=== PATIENT | male | born 1955 | race Caucasian/White ===

== ENCOUNTER 2019-04-20 08:10 | Outpatient (RCR) | payer BC, SELFPAY ==
[2019-02-02 08:03] LABS: INR 3.9; Prothrombin Time 37.5 Seconds (11.1-14.7)
[2019-02-09 07:55] LABS: INR 2.2; Prothrombin Time 23.8 Seconds (11.1-14.7)
[2019-04-03 11:22] LABS: INR 1.9; Prothrombin Time 21.6 Seconds (11.1-14.7)
[2019-04-20 09:27] LABS: INR 1.8; Prothrombin Time 20.6 Seconds (11.1-14.7)
== END 2019-05-03 23:59 | disposition home or self-care (01) ==
LOC: ANHLAB 08:10
PROVIDERS: PCP Family Medicine; Visit Provider Specialist
DX: Z95.2 Presence of prosthetic heart valve (principal)
CPT/HCPCS: 36415; 85610

== ENCOUNTER 2019-07-12 10:43 | Outpatient (RCR) | payer BC, OTHER, SELFPAY ==
[2019-05-05 11:19] LABS: INR 2.8; Prothrombin Time 28.8 Seconds (11.1-14.7)
[2019-06-12 14:21] LABS: INR 2.5; Prothrombin Time 26.8 Seconds (11.1-14.7)
[2019-07-12 11:18] LABS: INR 2.3; Prothrombin Time 24.4 Seconds (11.1-14.7)
== END 2019-08-03 23:59 | disposition home or self-care (01) ==
LOC: ANHLAB 10:43
PROVIDERS: PCP Family Medicine; Visit Provider Specialist
DX: Z95.2 Presence of prosthetic heart valve (principal)
CPT/HCPCS: 36415; 85610

== ENCOUNTER 2019-10-16 10:45 | Outpatient (RCR) | payer OTHER, SELFPAY ==
[2019-08-23 10:36] LABS: INR 2.8; Prothrombin Time 29.2 Seconds (11.1-14.7)
== END 2019-11-21 23:59 | disposition home or self-care (01) ==
LOC: ANHLAB 10:45
PROVIDERS: PCP Family Medicine; Visit Provider Specialist
DX: Z95.2 Presence of prosthetic heart valve (principal)
CPT/HCPCS: 36415; 85610

== ENCOUNTER 2020-02-07 08:41 | Outpatient (RCR) | payer OTHER, SELFPAY ==
[2019-12-20 08:49] LABS: Prothrombin Time 22.5 Seconds (11.1-14.7)
[2020-02-07 09:25] LABS: INR 2.5; Prothrombin Time 27.6 Seconds (11.1-14.7)
== END 2020-03-19 23:59 | disposition home or self-care (01) ==
LOC: ANHLAB 08:41
PROVIDERS: PCP Family Medicine; Visit Provider Specialist
DX: Z95.2 Presence of prosthetic heart valve (principal)
CPT/HCPCS: 36415; 85610

== ENCOUNTER 2020-05-08 11:15 | Outpatient (CLI) | payer OTHER, SELFPAY | END 2020-05-08 11:16 | disposition home or self-care (01) | LOC: ANHCOVIDVC 11:15 | PROVIDERS: PCP Family Medicine | DX: Z23 Encounter for immunization (principal) | CPT/HCPCS: 0001A; 91300 ==

== ENCOUNTER 2020-05-29 11:15 | Outpatient (CLI) | payer OTHER, SELFPAY | END 2020-05-29 11:16 | disposition home or self-care (01) | LOC: ANHCOVIDVC 11:15 | PROVIDERS: PCP Family Medicine | DX: Z23 Encounter for immunization (principal) | CPT/HCPCS: 0002A; 91300 ==

== ENCOUNTER 2020-06-11 08:47 | Outpatient (RCR) | payer OTHER, SELFPAY ==
[2020-03-25 09:20] LABS: INR 2.3; Prothrombin Time 26.2 Seconds (11.1-14.7)
[2020-05-02 08:06] LABS: INR 2.6; Prothrombin Time 28.5 Seconds (11.1-14.7)
[2020-06-11 09:36] LABS: INR 2.3; Prothrombin Time 25.5 Seconds (11.1-14.7)
== END 2020-06-23 23:59 | disposition home or self-care (01) ==
LOC: ANHLAB 08:47
PROVIDERS: PCP Family Medicine; Visit Provider Specialist
DX: Z95.2 Presence of prosthetic heart valve (principal)
CPT/HCPCS: 36415; 85610

== ENCOUNTER 2020-10-10 07:55 | Outpatient (RCR) | payer OTHER, SELFPAY ==
[2020-07-18 09:50] LABS: INR 2.4; Prothrombin Time 26.7 Seconds (11.1-14.7)
[2020-09-06 07:41] LABS: INR 2.4; Prothrombin Time 25.6 Seconds (11.1-14.7)
[2020-10-10 09:28] LABS: INR 2.5; Prothrombin Time 26.4 Seconds (11.1-14.7)
== END 2020-10-16 23:59 | disposition home or self-care (01) ==
LOC: ANHLAB 07:55
PROVIDERS: PCP Family Medicine; Visit Provider Specialist
DX: Z51.81 Encounter for therapeutic drug level monitoring (principal); Z95.2 Presence of prosthetic heart valve; Z79.01 Long term (current) use of anticoagulants
CPT/HCPCS: 36415; 85610

== ENCOUNTER 2021-02-25 08:34 | Outpatient (RCR) | payer OTHER, SELFPAY ==
[2020-11-27 08:52] LABS: INR 2.6
[2021-01-31 09:03] LABS: INR 3.4; Prothrombin Time 33.6 Seconds (11.1-14.7)
[2021-02-25 09:04] LABS: INR 2.5; Prothrombin Time 26.2 Seconds (11.1-14.7)
== END 2021-02-25 23:59 | disposition home or self-care (01) ==
LOC: ANHLAB 08:34
PROVIDERS: PCP Family Medicine; Visit Provider Specialist
DX: Z95.2 Presence of prosthetic heart valve (principal); Z79.01 Long term (current) use of anticoagulants
CPT/HCPCS: 36415; 85610

== ENCOUNTER 2021-05-01 02:15 | Day surgery (SDC) | payer OTHER, SELFPAY ==
[2021-04-23 14:06] VITALS: BMI 29.0
--- NOTE | 2021-04-24 14:49 | PC.NURSE ---
PT CALLED AND INSTRUCTED TO TAKE WARFARIN 04/26/2021 AND THEN HOLD STARTING 04/27/2021 UNTIL AFTER HIS PROCEDURE. PT VERBALIZES UNDERSTANDING
--- NOTE | 2021-04-30 14:54 | WPDANESEPPF ---
Anes - Initial Pre Proc Eval Procedure: Operation Date: 05/01/21 07:30 Proposed Procedures p Colonoscopy - Rafy Jolley MD Date/Time: 04/30/21 14:54 Surgeon: Rafy Jolley MD Pre Op Diagnosis: diarrhea Patient Data Age: 66 Gender: M Height: 1.7 m Weight: 84 kg Allergies Allergy/AdvReac Type Severity Reaction Status Date / Time No Known Allergies Allergy Verified 05/01/21 06:19 Home Medications Medication Instructions Recorded Confirmed Type aspirin [Adult Low Dose Aspirin] 81 mg PO DAILY 04/23/21 04/23/21 History cetirizine [Zyrtec] 10 mg PO DAILY 04/23/21 04/23/21 History latanoprost 1 drp EACH EYE HS 04/23/21 04/23/21 History losartan 100 mg PO DAILY 04/23/21 04/23/21 History rosuvastatin 20 mg PO QPM 04/23/21 04/23/21 History sertraline 100 mg PO DAILY 04/23/21 04/23/21 History warfarin 3 mg PO QPM 04/23/21 04/23/21 History warfarin 4 mg PO QTUTH 04/23/21 04/23/21 History Patient hx anesthesia problems: none Family hx anesthesia problems: none Results Review: All pre-operative results and documents have been reviewed as part of the pre-operative evaluation. [facility] Past Medical History Medical History (Updated 04/30/21 @ 14:56 by Tanner Cee DO) Anxiety Glaucoma Hyperlipidemia Hypertension Surgical History Surgical History (Updated 04/30/21 @ 14:56 by Tanner Cee DO) H/O aortic valve replacement 2009 Social History Social History Smoking status: Never smoker Alcohol intake: never Substance use: never Substance use type: does not use Living arrangements: with family Spiritual care concerns: No Anes - Eval Final PreProcedure Day of Procedure 04/30/21 14:54 Patient weight: overweight Heart: regular rate and rhythm Lungs: clear to auscultation and normal air movement Airway: Mallampati scale class II Neurological: alert and oriented Last oral intake: >/= 8 hours ASA classification: III Emergent: no Anesthetic plan: proceed Anesthesia type and monitoring: general GIVS and standard monitoring Results Review: All pre-operative results and documents have been reviewed as part of the pre-operative evaluation. Informed Consent: The patient's anesthetic plan and its attendant risks and benefits were discussed with the patient/family/POA. Questions were solicited and answers provided to the satisfaction of the patient/family/POA.
[2021-05-01] MEDS: GENTAMICIN 80MG/SOD CHL 50 ML 80 MG/50 ML BAG 100 MG IVPB (06:40)
[2021-05-01] MEDS: LACTATED RINGERS 1,000 ML 150 ML IV CONT (06:44)
[2021-05-01 06:50] VITALS: BP 136/84; PULSE 74; RESP 20; TEMP 36.3; O2SAT 97; BMI 27.9
[2021-05-01] MEDS: AMPICILLIN 2 GM/NS 100 ML 2 GM/100 ML BAG IVPB (07:12)
[2021-05-01 07:24] LABS: INR 1.3; Prothrombin Time 15.2 Seconds (11.1-14.7)
--- NOTE | 2021-05-01 07:28 | WPDGICN ---
Assessment and Plan Assessment and plan (1) Diarrhea: Code(s): R19.7 - Diarrhea, unspecified Status: Acute Assessment and Plan: Patient has diarrhea which will be evaluated the time of screening colonoscopy. Adding fiber to his diet is encouraged. Plan to exclude inflammatory bowel disease given the fact his twin brother suffers with Crohn's disease. Further recommendations will be given after endoscopy. (2) Encounter for screening colonoscopy: Code(s): Z12.11 - Encounter for screening for malignant neoplasm of colon Status: Acute Assessment and Plan: Patient presents for screening colonoscopy has been 12 years since last exam. Further recommendations will be given after endoscopy. GI Consult Note Consult date/time: 05/01/21 07:28 HPI: Guillaume Hutchinson is a 66 year old male Presents for colonoscopy on referral from Dr. Pearson. Patient reports 3-4 month history of diarrhea stools. Patient has soft to liquid stools has been persistent for several months. Always during the day. Never at night. He has no bleeding. He does have associated low bilateral abdominal discomfort that is rather persistent. Patient denies any fevers. He has had no recent travel. No one else in the family is ill. Patient reports that his twin brother has Crohn's disease. Patient himself has a distant history of heart valve replacement. Patient's last screening colonoscopy 12 years ago was unremarkable. Review of Systems Review of Systems: All systems reviewed & are unremarkable except as noted in HPI and below PMFSH Past Medical History Medical History (Updated 05/01/21 @ 07:30 by Rafy Jolley MD) Anxiety Glaucoma Hyperlipidemia Hypertension Surgical History Surgical History (Updated 04/30/21 @ 14:56 by Tanner Cee DO) H/O aortic valve replacement 2009 Social History Social History Smoking status: Never smoker Alcohol intake: never Substance use: never Substance use type: does not use Living arrangements: with family Spiritual care concerns: No Meds Home Medications and Allergies Home Medications Medication Instructions Recorded Confirmed Type aspirin [Adult Low Dose Aspirin] 81 mg PO DAILY 04/23/21 04/23/21 History cetirizine [Zyrtec] 10 mg PO DAILY 04/23/21 04/23/21 History latanoprost 1 drp EACH EYE HS 04/23/21 04/23/21 History losartan 100 mg PO DAILY 04/23/21 04/23/21 History rosuvastatin 20 mg PO QPM 04/23/21 04/23/21 History sertraline 100 mg PO DAILY 04/23/21 04/23/21 History warfarin 3 mg PO QPM 04/23/21 04/23/21 History warfarin 4 mg PO QTUTH 04/23/21 04/23/21 History Allergies Allergy/AdvReac Type Severity Reaction Status Date / Time No Known Allergies Allergy Verified 05/01/21 06:19 Vital Signs Vital Signs - 24 hr 05/01/21 06:50 Temperature 97.4 F L Pulse Rate 74 Respiratory Rate 20 Blood Pressure 136/84 Pulse Oximetry 97 Exam Narrative: Physical exam reveals patient to be alert. Vital signs stable. HEENT exam is unremarkable. Patient is anicteric. Lungs are clear to auscultation and percussion. Heart is without murmur or extra sounds. Abdominal exam bowel sounds are present soft nontender with no hepatosplenomegaly. Digital external rectal exam is normal.
--- NOTE | 2021-05-01 07:39 | SUR.OPER ---
PT and INR reported to Dr. Jolley during the time of the Time out.
[2021-05-01] MEDS: SIMETHICONE ORAL SUSPENSION 20 MG/0.3 ML 30 ML BOTTLE 0.6 ML IRRIGATION (07:46)
[2021-05-01 08:00] VITALS: BP 102/71; PULSE 60; RESP 16; O2SAT 95
[2021-05-01 08:10] VITALS: BP 117/79; PULSE 64; RESP 18; O2SAT 98
[2021-05-01 08:20] VITALS: BP 131/81; PULSE 58; RESP 20; O2SAT 98
== END 2021-05-01 08:39 | disposition home or self-care (01) ==
PROVIDERS: PCP Family Medicine; Visit Provider Internal Medicine Gastroenterology
PROC: 0DJD8ZZ Inspection of Lower Intestinal Tract, Via Natural or Artificial Opening Endoscopic (ICD-10-PCS; CPT 45378; principal; 2021-05-01 07:30)
DX: Z12.11 Encounter for screening for malignant neoplasm of colon (principal); K52.9 Noninfective gastroenteritis and colitis, unspecified; K64.8 Other hemorrhoids; K57.30 Diverticulosis of large intestine without perforation or abscess without bleeding; Z79.82 Long term (current) use of aspirin; Z79.01 Long term (current) use of anticoagulants; Z95.2 Presence of prosthetic heart valve
CPT/HCPCS: 45380; 36415; 85610; 88305; J0290; J1580; J2704; J7120

== ENCOUNTER 2021-06-30 08:10 | Outpatient (RCR) | payer OTHER, SELFPAY ==
[2021-04-21 09:21] LABS: INR 3.3; Prothrombin Time 32.6 Seconds (11.1-14.7)
[2021-05-26 09:42] LABS: INR 3.4; Prothrombin Time 33.3 Seconds (11.1-14.7)
[2021-06-30 08:50] LABS: INR 2.6; Prothrombin Time 26.9 Seconds (11.1-14.7)
== END 2021-07-20 23:59 | disposition home or self-care (01) ==
LOC: ANHLAB 08:10
PROVIDERS: PCP Family Medicine; Visit Provider Specialist
DX: Z51.81 Encounter for therapeutic drug level monitoring (principal); Z95.2 Presence of prosthetic heart valve; Z79.01 Long term (current) use of anticoagulants
CPT/HCPCS: 36415; 85610

== ENCOUNTER 2021-09-17 08:24 | Outpatient (RCR) | payer OTHER, SELFPAY ==
[2021-08-12 09:47] LABS: INR 1.9; Prothrombin Time 21.5 Seconds (11.1-14.7)
[2021-09-17 09:04] LABS: INR 2.1; Prothrombin Time 22.7 Seconds (11.1-14.7)
== END 2021-11-10 23:59 | disposition home or self-care (01) ==
LOC: ANHLAB 08:24
PROVIDERS: PCP Family Medicine; Visit Provider Specialist
DX: Z95.2 Presence of prosthetic heart valve (principal); Z79.01 Long term (current) use of anticoagulants
CPT/HCPCS: 36415; 85610

== ENCOUNTER 2022-02-06 12:47 | Outpatient (CLI) | payer MEDICARE, SELFPAY ==
--- NOTE | ~2022-02-06 | CT_ITS ---
EXAMINATION: CT abdomen pelvis wo/w con DATE: 02/06/2022 13:36 INDICATION: Gross hematuria TECHNIQUE: Computed tomography (CT) of the abdomen and pelvis was performed without intravenous contr ast. CT of the abdomen and pelvis was then performed with a total of 130 mL Omnipaque 350 intravenous contrast using a double-bolus technique for simultaneous opacification of the renal parenchyma and r enal collecting system. The dose-length product (DLP) was 1117.62 mGy-cm. Automated exposure control and iterative reconstruction technique were employed. COMPARISON: 04/02/2015 FINDINGS: Minimal dependent atelectasis is present in the lung bases. The heart size is normal. There is a 12 mm cyst of the liver. The spleen, pancreas, gallbladder, and adrenal glands are normal. Ther e is a 5.2 cm cyst of the right kidney. There are peripelvic cysts of the left kidney. There is a 2 m m nonobstructing stone of the left kidney lower pole. No suspicious renal or urothelial lesion identi fied. No pathologically enlarged abdominal or pelvic lymph nodes are identified. There is no free int raperitoneal gas or evidence of bowel obstruction. The appendix is normal. Colonic diverticulosis is present without evidence of diverticulitis. There is mild lumbar spondylosis. IMPRESSION: 1. Nonobstructing left kidney stone. Reviewed, dictated and finalized at location A. [employer]
[2022-02-06 13:23] LABS: Estimated Glomerular Filt Rate > 60
== END 2022-02-06 12:48 | disposition home or self-care (01) ==
PROVIDERS: PCP Family Medicine; Visit Provider Family Medicine
DX: R31.0 Gross hematuria (principal); N20.0 Calculus of kidney
CPT/HCPCS: 74178; Q9967

== ENCOUNTER 2022-02-09 09:09 | Outpatient (RCR) | payer OTHER, SELFPAY ==
[2021-11-27 08:37] LABS: INR 2.2; Prothrombin Time 23.4 Seconds (11.1-14.7)
[2022-02-09 10:22] LABS: INR 2.4; Prothrombin Time 25.6 Seconds (11.1-14.7)
== END 2022-02-25 23:59 | disposition home or self-care (01) ==
LOC: ANHLAB 09:09
PROVIDERS: PCP Family Medicine; Visit Provider Specialist
DX: Z95.2 Presence of prosthetic heart valve (principal); Z79.01 Long term (current) use of anticoagulants
CPT/HCPCS: 36415; 85610

== ENCOUNTER 2022-05-30 08:37 | Emergency (ER) | payer MEDICARE, SELFPAY ==
--- NOTE | ~2022-05-30 | XR_ITS ---
EXAMINATION: XR lumbar spine 2-3V DATE: 05/30/2022 09:16 INDICATION: Low back pain. TECHNIQUE: 3 views of lumbar spine were obtained. COMPARISON: None. FINDINGS: There is 5 degrees levocurvature of lumbar spine. There is 5 mm anterolisthesis of L4 on L5 . There is mildly decreased disc height at L2-L3 and moderately decreased disc height at L4-L5. There is multilevel facet joint osteoarthritis, severe in lower lumbar spine. IMPRESSION: 1. Moderate lumbar spondylosis. Reviewed, dictated and finalized at location A.
[2022-05-30 08:51] VITALS: BP 143/75; PULSE 70; RESP 18; TEMP 36.1; O2SAT 99
--- NOTE | 2022-05-30 08:53 | ED.GENADULT ---
HPI - General Adult General Chief complaint: Back Pain/Injury Stated complaint: back pain Time Seen by Provider: 05/30/22 08:53 Source: patient Mode of arrival: ambulatory Limitations: no limitations History of Present Illness HPI narrative: CC 7-year-old male patient presents to the [facility] with complaints of lower back pain for the past 3 weeks. Patient does not remember any specific injury to the back but thinks that it came on when he was laying some hilda. Patient states he has had 9 visits with the chiropractor and states that his pain has not gotten any better. Patient states that the pain is now radiating to the lower extremity. Patient states at times he has got some tingling but denies any numbness. Denies any loss of bowel or bladder control. Patient states he has more pain when trying to stand up and is not able to lay on his back due to the pain. Patient states he has been taking ibuprofen sometimes up to 6-8 pills at 1 time to help with pain. Related Data Home Medications Medication Instructions Recorded Confirmed aspirin 81 mg tablet 81 mg PO DAILY 04/23/21 05/30/22 cetirizine 10 mg capsule (Zyrtec) 10 mg PO DAILY 04/23/21 05/30/22 latanoprost 0.005 % eye drops 1 drp EACH EYE HS 04/23/21 05/30/22 losartan 100 mg tablet 100 mg PO DAILY 04/23/21 05/30/22 rosuvastatin 20 mg tablet 20 mg PO QPM 04/23/21 05/30/22 sertraline 100 mg tablet 100 mg PO DAILY 04/23/21 05/30/22 warfarin 2 mg tablet (Jantoven) 2 mg PO DAILY 05/30/22 05/30/22 Allergies Allergy/AdvReac Type Severity Reaction Status Date / Time No Known Allergies Allergy Verified 05/30/22 08:53 Review of Systems Review of Systems: CONSTITUTIONAL: Denies fever, chills, or sweats. EYES: Denies visual changes, redness, or discharge. ENT: Denies rhinorrhea, congestion, sore throat, or otalgia. CARDIOVASCULAR: Denies chest pain, palpitations, or edema. RESPIRATORY: Denies cough or dyspnea. GASTROINTESTINAL: Denies abdominal pain, nausea, vomiting, or diarrhea. GENITOURINARY: Denies dysuria or hematuria. SKIN: Denies rash or itching. MUSCULOSKELETAL: Positive low back pain, denies joint pain, or myalgia. NEUROLOGIC: Denies headache, numbness, or weakness. PSYCHIATRIC: Denies anxiety or depression. [facility] Past Medical History Medical History Anxiety Diarrhea Erectile disorder Essential (primary) hypertension Glaucoma Hypertension assisted (current) use of anticoagulants Major depressive disorder, recurrent, in full remission Major depressive disorder, recurrent, in partial remission Presence of prosthetic heart valve Pure hypercholesterolemia, unspecified Surgical History Surgical History H/O aortic valve replacement 2009 H/O cleft lip repair 1957, 195. 1968. 1969. 1970 History of cervical discectomy C5-C6 with fusion. 1990 History of repair of rotator cuff Left side with biceps repair 11/2018 History of repair of rotator cuff Right side with biceps repair 01/2019 Social History Social History Smoking status: Never smoker Second hand tobacco smoke exposure: No Alcohol intake: never Substance use: never Substance use type: does not use Lack of Transportation: No Lack of Food: Never True Current Housing: I Have Housing Concerned About Future Housing: No Difficulty Paying for Meds: No Currently Unemployed: YES Difficulty w/ Childcare or Family Care: No Living arrangements: with family Occupation/Education: retired Gender identity (if verbalized by the patient): Male Sexual Orientation (if Verbalized by the Patient): Straight or Heterosexual Spiritual care concerns: No Comments At the time of my signature I agree with nursing past medical history, surgical, social, and family history. There is no relevant family history pertinent t
[2022-05-30] MEDS: KETOROLAC (*BKC) 60 MG/2 ML VIAL IM (09:25)
== END 2022-05-30 09:52 | disposition home or self-care (01) ==
PROVIDERS: Emergency Provider Nurse Practitioner Family; PCP Family Medicine
DX: M54.16 Radiculopathy, lumbar region (principal); M54.30 Sciatica, unspecified side; M47.816 Spondylosis without myelopathy or radiculopathy, lumbar region; I10 Essential (primary) hypertension; Z79.82 Long term (current) use of aspirin; Z79.01 Long term (current) use of anticoagulants
CPT/HCPCS: 72100; 96372; 99213; G0463; J1885

== ENCOUNTER 2022-06-07 13:30 | Outpatient (CLI) | payer MEDICARE, SELFPAY ==
--- NOTE | ~2022-06-07 | MR_ITS ---
MRI of the lumbar spine Clinical History: Degenerative disc disease Technique: Axial T2-weighted images, and sagittal T1-weighted, T2-weighted, and T2 fat-sat images wer e acquired. Findings: There is no fracture the lumbar spine. 7-8 mm anterolisthesis of L4 over L5 present. No bon e marrow signal abnormality seen. At L1-L2 and L2-L3, there is no disc bulge or herniation. No spinal canal stenosis or neural foramina l narrowing at these levels. At L3-L4, there is diffuse disc bulge with mild facet joint hypertrophy. No spinal canal stenosis. Th ere is mild to moderate right neural foraminal narrowing. Left neural foramen preserved. At L4-L5, disc bulge/uncovering and facet arthropathy result in severe spinal canal stenosis/thecal s ac compression. There is moderate to severe right neural foraminal narrowing. Left neural foramen pre served. At L5-S1, there is minimal disc bulge and mild to moderate facet joint arthropathy. No spinal canal s tenosis or neural foraminal narrowing evident. Paravertebral soft tissues are unremarkable. Impression: Severe degenerative spondylosis at L4-L5, with associated 7-8 mm anterolisthesis of L4 over L5. Mild degenerative changes at remaining lumbar levels, as detailed above. Reviewed, dictated and finalized at [facility]. Impression: Severe degenerative spondylosis at L4-L5, with associated 7-8 mm anterolisthesi s of L4 over L5. Mild degenerative changes at remaining lumbar levels, as detailed above.
== END 2022-06-07 13:31 | disposition home or self-care (01) ==
PROVIDERS: PCP Family Medicine; Visit Provider Physician Assistant
DX: M47.896 Other spondylosis, lumbar region (principal); M51.36 Other intervertebral disc degeneration, lumbar region
CPT/HCPCS: 72148

== ENCOUNTER 2022-07-07 08:54 | Outpatient (RCR) | payer MEDICARE, SELFPAY ==
[2022-04-08 10:06] LABS: Prothrombin Time 21.5 Seconds (11.1-14.7)
[2022-05-25 10:36] LABS: INR 2.2; Prothrombin Time 23.7 Seconds (11.1-14.7)
[2022-07-07 09:26] LABS: INR 2.5; Prothrombin Time 29.2 Seconds (11.1-14.7)
== END 2022-07-07 23:59 | disposition home or self-care (01) ==
LOC: ANHLAB 08:54
PROVIDERS: PCP Family Medicine; Visit Provider Specialist
DX: Z51.81 Encounter for therapeutic drug level monitoring (principal); Z95.2 Presence of prosthetic heart valve; Z79.01 Long term (current) use of anticoagulants
CPT/HCPCS: 36415; 85610

== ENCOUNTER 2022-10-28 07:53 | Outpatient (RCR) | payer MEDICARE, SELFPAY ==
[2022-09-09 09:15] LABS: Prothrombin Time 23.8 Seconds (11.1-14.7)
[2022-10-28 08:22] LABS: INR 2.1; Prothrombin Time 24.6 Seconds (11.1-14.7)
== END 2022-12-08 23:59 | disposition home or self-care (01) ==
LOC: ANHLAB 07:53
PROVIDERS: PCP Family Medicine; Visit Provider Specialist
DX: Z51.81 Encounter for therapeutic drug level monitoring (principal); Z95.2 Presence of prosthetic heart valve; Z79.01 Long term (current) use of anticoagulants
CPT/HCPCS: 36415; 85610

== ENCOUNTER 2023-06-29 08:32 | Outpatient (RCR) | payer MEDICARE, SELFPAY ==
[2023-04-27 09:49] LABS: INR 3.3; Prothrombin Time 35.7 Seconds (11.1-14.7)
== END 2023-07-26 23:59 | disposition home or self-care (01) ==
LOC: ANHLAB 08:32
PROVIDERS: PCP Family Medicine; Visit Provider Specialist
DX: Z51.81 Encounter for therapeutic drug level monitoring (principal); Z95.2 Presence of prosthetic heart valve; Z79.01 Long term (current) use of anticoagulants
CPT/HCPCS: 36415; 85610

== ENCOUNTER 2023-09-07 08:44 | Outpatient (RCR) | payer MEDICARE, SELFPAY ==
[2023-08-18 09:30] LABS: INR 3.1; Prothrombin Time 32.7 Seconds (11.1-14.7)
[2023-09-07 09:24] LABS: INR 2.9; Prothrombin Time 30.6 Seconds (11.1-14.7)
== END 2023-11-16 23:59 | disposition home or self-care (01) ==
LOC: ANHLAB 08:44
PROVIDERS: PCP Family Medicine; Visit Provider Specialist
DX: Z51.81 Encounter for therapeutic drug level monitoring (principal); Z95.2 Presence of prosthetic heart valve; Z79.01 Long term (current) use of anticoagulants
CPT/HCPCS: 36415; 85610

== ENCOUNTER 2023-11-29 06:36 | Outpatient (CLI) | payer MEDICARE, SELFPAY ==
--- NOTE | ~2023-11-29 | CT_ITS ---
CT lumbar spine wo con Ordering provider: Chris Yang History: 68 years Male with . SPONDYLOLISTHESIS GRADE 1/S/P LUMBAR SPINAL FUSION . Comparison: None. Technique: CT lumbar spine without contrast. Automated exposure control and iterative reconstruction technique were employed. The dose-length product was 392.81 mGy-cm. FINDINGS: VERTEBRAE: Anterolisthesis at the level of L4-L5 with postoperative changes for fixation. Slight loss of volume of L5 posteriorly with no definite acute fracture. Otherwise, Normal height and alignment. No subluxation or visible acute fracture. DISC SPACES: Well maintained. Hyperdense material in the disc interspace L4-L5 is seen most likely se en bone cement. T12-L1: No stenosis. L1-L2: No stenosis. L2-L3: No stenosis. Mild diffuse disc bulge. No compression or significant intervertebral foraminal narrowing. L3-L4: No stenosis. Mild diffuse disc bulge. L4-L5: No stenosis. Diffuse disc bulge. Bilateral facet joint disease. L5-S1: No stenosis. Diffuse disc bulge. Bilateral facet joint disease. PARASPINOUS SOFT TISSUES: Right renal soft tissue density most likely a cyst measuring 5.3 cm. IMPRESSION: Postoperative changes at the level of L4-L5 with first-degree spondylolisthesis. No acute osseous abnormality. Reviewed, dictated and finalized at location A. IMPRESSION: Postoperative changes at the level of L4-L5 with first-degree spondylolisthesis . No acute osseous abnormality.
== END 2023-11-29 06:37 | disposition home or self-care (01) ==
PROVIDERS: PCP Family Medicine
DX: M43.16 Spondylolisthesis, lumbar region (principal); M51.36 Other intervertebral disc degeneration, lumbar region; Z98.1 Arthrodesis status
CPT/HCPCS: 72131

== ENCOUNTER 2024-02-10 09:41 | Emergency (ER) | payer MEDICARE, SELFPAY ==
--- NOTE | ~2024-02-10 | XR_ITS ---
EXAMINATION: [id number] DATE: 02/10/2024 10:18 INDICATION: Right rib pain post fall 3 days prior. TECHNIQUE: A frontal inspiratory view of the chest and 3 views of the right ribs were obtained. COMPARISON: None FINDINGS: Subtle nondisplaced fracture at the anterior right sixth rib. Mild elevation the left hemidiaphragm w ith mild linear discoid atelectasis at the lateral left lung base. No other airspace opacities, pulmo nary edema, pleural effusion or pneumothorax. Cardiac mediastinal silhouette is normal. Postoperative change of prior median sternotomy and cardiac valve repair, likely aortic. Postoperative change krista g the proximal right humerus and possibly including a bicipital tenodesis. IMPRESSION: 1. Nondisplaced anterior right sixth rib fracture. No pneumothorax or other acute cardiopulmonary dis ease. Reviewed, dictated and finalized at location A. WARE DEVELOPMENT MANAGER IMPRESSION: 1. Nondisplaced anterior right sixth rib fracture. No pneumothorax or other acu te cardiopulmonary disease.
--- OUTSIDE RECORDS SUMMARY | 2024-02-10 09:56 | XMS_ITS | Continuity of Care Document ---
Author Organization [facility] - Main Address [address] [place] [address] Insurance Providers Payer Plan Claims Address Claims Phone Policy Number Group Number Relation Employer Guarantor Name Guarantor Guarantor Address Guarantor Phone [employer] [address], [place] [address] tel:[phone] Self Guillaume York 1955 [address] [place] [address] [employer] [address], [place] [address] tel:[phone] Self Guillaume York 1955 [address] [place] [address] [employer] [address], [place] [address] tel:[phone] Self Guillaume Marne 1955 [address] [place] [address] Problems Condition ICD9 code ICD10 code SNOMED code Start Date End Date S tatus Encounter for therapeutic drug level monitoring Z51.81 Working Arthrodesis status Z98.1 Worki ng Spondylolisthesis, site unspecified M43.10 Working half-way (current) use of anticoagulants Z79.01 Working Other intervertebral disc degeneration, lumbar region M51.36 Working Disease of spinal cord, unspecified G95.9 Working Spontaneous ecchymoses R23.3 Results No Results Allergies, adverse reactions, alerts No known allergies and adverse reactions Medications No administered medications reported Vital Signs No vital signs reported Social History No smoking Hx information available
--- NOTE | 2024-02-10 09:57 | ED_ITS ---
HPI - General Adult General Chief complaint: Wound/Laceration Stated complaint: RT side Rib Pain/ cough Time Seen by Provider: 02/10/24 10:00 Source: patient, RN notes reviewed and old records reviewed Mode of arrival: ambulatory Limitations: no limitations History of Present Illness HPI narrative: 69-year-old male presents to the [facility] with right mid lateral rib pain post fall. States that he fell landing on a laminate hilda and his elbow went into his chest. Has been using heat and icy Hot. Fall occurred 3 days ago. Denies hitting head. No loss of consciousness. Patient states the same day he fell he also developed a cough Related Data Home Medications ?Medication ?Instructions ?Recorded ?Confirmed ?Last Taken ?Type aspirin 81 mg tablet 81 mg PO DAILY 04/23/21 10/27/23 04/30/21 History cetirizine 10 mg capsule (Zyrtec) 10 mg PO DAILY 04/23/21 10/27/23 04/30/21 History latanoprost 0.005 % eye drops 1 drp EACH EYE HS 04/23/21 10/27/23 04/30/21 History warfarin 2 mg tablet (Jantoven) 2 mg PO DAILY 05/30/22 10/27/23 Unknown History cyclobenzaprine 10 mg tablet mg 02/10/24 Unknown History Allergies Allergy/AdvReac Type Severity Reaction Status Date / Time No Known Allergies Allergy Verified 02/10/24 10:02 Review of Systems Review of Systems: All systems reviewed & are unremarkable except as noted in HPI and below Constitutional: Constitutional: Reports no additional constitutional complaints ENT: Reports system reviewed and no additional complaints, except as documented Cardiovascular: Cardiovascular: Reports no additional cardiovascular complaints, Denies chest pain and Denies dyspnea Respiratory: Respiratory: Reports as per HPI, Denies chest congestion, Reports cough and Denies dyspnea Gastrointestinal: Gastrointestinal: Reports no additional gastrointestinal complaints, Denies abdominal pain, Denies nausea and Denies vomiting Musculoskeletal: Musculoskeletal: Reports as per HPI Integumentary/Breasts: Skin/Breast: Reports system reviewed and no additional complaints, except as docu PMFSH Past Medical History Medical History intermediate current use of anticoagulant Lumbosacral spondylosis with radiculopathy Aortic insufficiency Pure hypercholesterolemia, unspecified Major depressive disorder, recurrent, in full remission Essential (primary) hypertension Anxiety Glaucoma Surgical History Surgical History History of lumbar discectomy March 26, 2023 History of repair of rotator cuff Right side with biceps repair 01/2019 History of repair of rotator cuff Left side with biceps repair 11/2018 History of cervical discectomy C5-C6 with fusion. 1990 H/O cleft lip repair 1957, 195. 1968. 1969. 1970 H/O aortic valve replacement 2009 Social History Social History Smoking status: Never smoker Second hand tobacco smoke exposure: No Alcohol intake: never Substance use: never Substance use type: does not use Lack of Transportation: No Lack of Food: Never True Current Housing: I Have Housing Concerned About Future Housing: No Difficulty Paying for Meds: No Currently Unemployed: YES Education: High School Diploma/GED Difficulty w/ Childcare or Family Care: No Living arrangements: with family Occupation/Education: retired Gender identity (if verbalized by the patient): Male Sexual Orientation (if Verbalized by the Patient): Straight or Heterosexual Spiritual care concerns: No Comments At the time of my signature, I reviewed and agree with the nursing past medical, surgical, social, and family history. There is no relevant family history pertinent to the patient complaint. Exam Const: General: cooperative, healthy appearing, comfortable, no acute distress, well developed, alert and well nourished Nutritional Appearance: well nourished Orientation/consciousness: patient oriented x3 Limitations: no limitations HENMT: Head: normal to inspection Face/Nose/Sinus: normal facial exam and face symmetric Face and sinus: normal facial exam and face symmetric Eyes: General: appearance normal, both eyes and all related structures Neck: Neck: normal visual inspection, full ROM, no lymphadenopathy and no meningeal signs Chest: Chest palpation & inspection: no crepitus, no masses, tenderness rib (Right lateral mid ribs) and No rash Resp: Effort & Inspection: normal respiratory effort and able to speak in complete sentences Auscultation: clear to auscultation bilaterally, no crackles, no rales, no rhonchi and no wheezes Cardio: Rate: regular rate Skin: General skin exam: normal color and no rashes or lesions noted Lesions: no lesions Rashes: no rashes Wounds: no wounds Neuro: General: patient oriented x3, gait normal, tone normal, moves all extremities and no meningeal signs Cognition (Neuro): normal cognition Speech: normal speech Gait exam (Neuro): Normal gait present Extrem: General: normal to inspection, full ROM, capillary refill normal and normal gait Psych: Appearance: grossly normal and well kempt Mental Status: mental status grossly normal Speech and movement: Normal speech and movement present and Clear speech present Affect: normal affect Attitude: cooperative Course Course Level of Care: Express Care Visit Vital Signs Vital signs: Vital Signs Temperature 97.8 F 02/10/24 10:01 Pulse Rate 66 02/10/24 10:01 Respiratory Rate 18 02/10/24 10:01 Blood Pressure 126/75 02/10/24 10:01 Pulse Oximetry 99 02/10/24 10:01 Oxygen Delivery Room Air 02/10/24 10:01 Temperature 97.8 F 02/10/24 10:01 Pulse Rate 66 02/10/24 10:01 Respiratory Rate 18 02/10/24 10:01 Blood Pressure 126/75 02/10/24 10:01 Pulse Oximetry 99 02/10/24 10:01 Oxygen Delivery Room Air 02/10/24 10:01 Reviewed Medical Decision Making MDM Narrative Medical decision making narrative: Patient sitting comfortably in exam room. Nontoxic, vitals stable. Patient in no acute distress Patient presents for 3 days post fall. Nondisplaced 6th rib fracture noted on x-ray per radiologist. Discussed using a muscle relaxer, patient states that he has enough at home does not eat anymore. Discussed using ice instead of heat as well as incentive spirometer was given. Patient appropriate for outpatient treatment with close follow-up Discharge instructions reviewed with patient, as well as provided in writing per nursing staff. The instructions also include specific and strict return/GO TO THE ER as well as f/u information. All questions have been answered, and the patient deny any further questions with discharge and discharge plan. Some parts of this dictation were generated by voice recognition software and may contain typographical and/or grammatical inaccuracies. Differential Diagnosis Differential Diagnosis: Rib contusion, rib fracture Medical Records Medical records reviewed: Yes I reviewed the external patient's medical records. Vital Signs Vital Signs: Vital Signs Temperature 97.8 F 02/10/24 10:01 Pulse Rate 66 02/10/24 10:01 Respiratory Rate 18 02/10/24 10:01 Blood Pressure 126/75 02/10/24 10:01 Pulse Oximetry 99 02/10/24 10:01 Oxygen Delivery Room Air 02/10/24 10:01 Temperature 97.8 F 02/10/24 10:01 Pulse Rate 66 02/10/24 10:01 Respiratory Rate 18 02/10/24 10:01 Blood Pressure 126/75 02/10/24 10:01 Pulse Oximetry 99 02/10/24 10:01 Oxygen Delivery Room Air 02/10/24 10:01 Reviewed Lab Data Lab results reviewed: Yes I reviewed the patient's lab results. Labs: Reviewed Imaging Data Radiologist's impression: EXAMINATION: [id number] DATE: 02/10/2024 10:18 INDICATION: Right rib pain post fall 3 days prior. TECHNIQUE: A frontal inspiratory view of the chest and 3 views of the right ribs were obtained. COMPARISON: None FINDINGS: Subtle nondisplaced fracture at the anterior right sixth rib. Mild elevation the left hemidiaphragm with mild linear discoid atelectasis at the lateral left lung base. No other airspace opacities, pulmonary edema, pleural effusion or pneumothorax. Cardiac mediastinal silhouette is normal. Postoperative change of prior median sternotomy and cardiac valve repair, likely aortic. Postoperative change along the proximal right humerus and possibly including a bicipital tenodesis. IMPRESSION: 1. Nondisplaced anterior right sixth rib fracture. No pneumothorax or other acute cardiopulmonary disease. Critical Care Time Critical Care Time Critical Care Time: No Discharge Plan Discharge Clinical Impression: Right rib fracture Qualifiers: Encounter type: initial encounter Rib fracture type: single rib Fracture type: closed Qualified Code(s): S22.31XA - Fracture of one rib, right side, initial encounter for closed fracture Patient Disposition: Home, Self-Care Condition: Stable Instructions: Antibiotic Form, Rib Fracture (ED) Additional Instructions: Your x-ray showed a nondisplaced right 6th rib fracture. It is important that you do take 10 deep breaths an hour while awake, using the incentive spirometer over the next several weeks. Well taking deep breaths it is important that you brace the area with a pillow. Applying ice to the area can help reduce inflammation. Take Tylenol as needed for pain. Take your muscle relaxer as prescribed. Follow-up with primary care provider For new or worsening symptoms go directly to the emergency room Patient Language: Tajik Prescriptions: No Action warfarin [Jantoven] 2 mg tablet 2 mg PO DAILY cyclobenzaprine 10 mg tablet Adult Low Dose Aspirin 81 mg Tablet 81 mg PO DAILY Zyrtec 10 mg Capsule 10 mg PO DAILY latanoprost 0.005 % drops 1 drp EACH EYE HS rosuvastatin 20 mg tablet 20 mg PO QPM Qty: 90 1RF losartan 100 mg tablet 100 mg PO DAILY Qty: 90 1RF sertraline 100 mg tablet See Rx Instructions .ROUTE .COMPLEX Qty: 135 1RF Dose Instruction: 150 MG ORALLY DAILY FOR 90 DAYS Rx Instructions: 150 MG ORALLY DAILY FOR 90 DAYS Follow-up/Referrals: Samir Pearson MD [Primary Care Provider] - 1 Week ([facility] care follow up ) Time of Disposition: 11:00
[2024-02-10 10:01] VITALS: BP 126/75; PULSE 66; RESP 18; TEMP 36.6; O2SAT 99
== END 2024-02-10 11:05 | disposition home or self-care (01) ==
PROVIDERS: Emergency Provider Nurse Practitioner; PCP Family Medicine
DX: S22.31XA Fracture of one rib, right side, initial encounter for closed fracture (principal); W19.XXXA Unspecified fall, initial encounter; E78.00 Pure hypercholesterolemia, unspecified; I10 Essential (primary) hypertension; H40.9 Unspecified glaucoma; Z79.01 Long term (current) use of anticoagulants
CPT/HCPCS: 71101; 99213; G0463

== ENCOUNTER 2024-03-13 09:17 | Outpatient (RCR) | payer MEDICARE, SELFPAY ==
[2024-03-13 10:14] LABS: INR 2.8; Prothrombin Time 30.2 Seconds (11.1-14.7)
== END 2024-06-11 23:59 | disposition home or self-care (01) ==
LOC: ANHLAB 09:17
PROVIDERS: PCP Family Medicine; Visit Provider Specialist
DX: Z51.81 Encounter for therapeutic drug level monitoring (principal); Z95.2 Presence of prosthetic heart valve; Z79.01 Long term (current) use of anticoagulants
CPT/HCPCS: 36415; 85610

== ENCOUNTER 2024-09-11 08:00 | Outpatient (RCR) | payer MEDICARE, SELFPAY ==
[2024-06-27 08:44] LABS: INR 2.7; Prothrombin Time 29.0 Seconds (11.1-14.7)
[2024-08-15 09:44] LABS: INR 2.3; Prothrombin Time 25.3 Seconds (11.1-14.7)
[2024-09-11 08:33] LABS: INR 2.5; Prothrombin Time 26.3 Seconds (11.1-14.7)
== END 2024-09-25 23:59 | disposition home or self-care (01) ==
LOC: ANHLAB 08:00
PROVIDERS: PCP Family Medicine; Visit Provider Specialist
DX: Z51.81 Encounter for therapeutic drug level monitoring (principal); Z95.2 Presence of prosthetic heart valve; Z79.01 Long term (current) use of anticoagulants
CPT/HCPCS: 36415; 85610

== ENCOUNTER 2024-10-04 02:31 | Day surgery (SDC) | payer MEDICARE, SELFPAY ==
[2024-10-03 10:17] VITALS: BMI 26.8
--- OUTSIDE RECORDS SUMMARY | 2024-10-04 02:41 | XMS_ITS | Encounter Summary ---
Author Organization [facility] Healthcare Address [address] [place] [address] Care Team Providers Care Windows Vmware Engineer Name Role Phone Samir Pearson MD Primary Care Provider [phone] Marek Soto MD Unavailable [phone] Encounter Details Date Type Department Care Team (Late st Contact Info) Description 10/27/2023 Orders Only [facility] [place] Health Information Management [address] [place] [id number] Scanning, Provider Social History Tobacco Use Types Packs/Day Years Used Date Smoking Tobacco: Never Smokeless Tobacco: Never Alcohol Use Standard Drinks/Week Comments No 0 (1 standard drink = 0.6 oz pur e alcohol) AUDIT-C Answer Date Recorded Q1: How often do you have a drink containing alcohol? Never 10/26/2023 Q2: How many drinks containi ng alcohol do you have on a typical day when you are drinking? Patient does not drink Q3: How often do you have si x or more drinks on one occasion? Never 10/26/2023 Personal Safety Answer Date Recorded Have you ever been in or are you currently in a harmful physical or emotional relationship or is someone making you feel afraid or unsafe? 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 Author CCM Chronic Pain Care Plan Chronic Care Management No Risa Nance RN Note: Problem: Chronic Pain Goals: 1. Minimize further functional decline 2. Maximize quality of life 3. Control pain Strategies: - Activity/exercise program recommendation - Conservative stepwise pain medicine strategy with multi-disciplinary approach - Recommend healthy lifestyle strategies and compensatory methods as needed Reduce the likelihood of falling Lifestyle No Risa Nance RN Note: Below are four things you can do to prevent falls: Begin an exercise program to improve your leg strength & balance Ask your doctor or pharmacist to review your medicines Get annual eye check-ups & update your eyeglasses Make your home safer by: Removing clutter & tripping hazards Putting railings on all stairs & adding grab bars in the bathroom Having good lighting, especially on stairs Contact your local community or [facility] for information on exercise, fall prevention programs, or options for improving home safety. documented as of this encounter Procedures Procedure Name Priority Date/Time Associated Diagnosis Comments SCAN - LABS 10/27/2023 documented in this encounter Results * SCAN - LABS (10/27/2023) us Provider Scanning Final Result documented in this encounter Visit Diagnoses Not on filedocumented in this encounter Care Teams Windows Vmware Engineer Relationship Specialty Start Date End Date Samir Pearson MD [address] [place] [id number] PCP - General 05/29/16 Marek Soto MD [address] [facility] [address] [place] [address] Consulting Physician Cardiology 12/30/22 documented as of this encounter
--- OUTSIDE RECORDS SUMMARY | 2024-10-04 02:41 | XMS_ITS | Continuity of Care Document ---
Author Organization [facility] Address [address] [place] [address] [place] [address] Phone Care Team Providers Care Superintendent Police Name Role Phone Jin OD, Rafy Unavailable Unavailable Procedures Procedure Date Optic Nerve Topography Optic Nerve Topography Visual Field Examination(s) Office/outpatient Visit, Est Optic Nerve Topography Optic Nerve Topography Visual Field Examination(s) Office/outpatient Visit, Est Fundus Photography W/ Report Office/outpatient Visit, Est Optic Nerve Topography Optic Nerve Topography Visual Field Examination(s) Office/outpatient Visit, Est Corneal Pachymetry Fundus Photography W/ Report Advance Directives Directive Yes / No Effective Date File Name No Information Encounters Encounter Description Practice Location Reason(s) For Visit Diagnoses Date Provider Providers Copied on Encounter [facility], [address] [place] [address] [address], [place], [place], [id number], [place] tel:[phone] [facility] No Information 0-201 0 Abdi OD Rafy. [employer] [address], [place], [address], [place]. tel:[phone] Referring Provider: Rafy Abdi OD [employer] [address], [place], [address]. tel:[phone] [facility], [address] [place] [address] [address], [place], [place], [id number], tel:[phone] [facility] No Information 2-201 0 Abdi OD Rafy. [facility] , [address], [place], [place], [facility], . tel:[phone] Referring Provider: Rafy Abdi OD A, [facility] [address], [place], [place], [facility]. tel:[phone] Office/outpat ient Visit, [facility], [address] [place] [address] [address], [place], [place], [id number], tel:[phone] [facility] No Information 1-201 0 Abdi OD Rafy. [address] [place], [place] [address] , [address], [place], [place], [facility], . tel:[phone] [facility], [address] [place] [address] [address], [place], [place], [id number], tel:[phone] [facility] No Information 1-200 9 Abdi OD Rafy. [address] [place], [place] [address]ate Center , [address], [place], [place], [facility], [place]. tel:[phone] Referring Provider: Rafy Abdi OD A, [facility] [address], [place], [place], [facility]. tel:[phone] [facility], [address] [place] [address] [address], [place], [place], [id number], [place] tel:[phone] [facility] No Information 0-200 9 Abdi OD Rafy. [facility] , [address], [place], [place], [facility], [place]. tel:[phone] Referring Provider: Rafy Abdi OD A, [facility] [address], [place], [facility]. tel:[phone] Office/outpat ient Visit, [facility], [address] [place] [address] [address], [place], [place], [id number], tel:[phone] [facility] No Information Mar-1 9-200 9 Abdi OD Rafy. [facility] , [address], [place], [place], [facility], [place]. tel:[phone] Referring Provider: Rafy Abdi OD A, [facility] [address], [place], [facility]. tel:[phone] Office/outpat ient Visit, [facility], [address] [place] [address] [address], [place], [place], [id number], tel:[phone] [facility] No Information Sep-1 2-200 8 Abdi OD Rafy. [address] [place], [place] [address]ate [facility] , [address], [place], [address], [place]. tel:[phone] [facility], [address] [place] [address] [address], [place], [place], [id number], tel:[phone] [facility] No Information Mar-1 8-200 8 Abdi OD Rafy. [address] [place], [place] [address]ate [address], [address], [place], [place], [facility], [place]. tel:[phone] Referring Provider: Rafy Abdi OD A, [facility] [address], [place], [facility]. tel:[phone] [facility], [address] [place] [address] [address], [place], [place], [id number], [place] tel:[phone] [facility] No Information Evelio-0 3-200 8 Abdi OD Rafy. [facility] , [address], [place], [address], [place]. tel:[phone] Referring Provider: Rafy Abdi OD A, [facility] [address], [place], [address]. tel:[phone] Office/outpat ient Visit, [facility], [address] [place] [address] [address], [place], [place], [id number], [place] tel:[phone] [facility] No Information 7-200 7 Abdi CHERYL Hillman. [facility] , [address], [place], [address], . tel:[phone] Referring Provider: Rafy [place] [address], [place], [place], [facility]. tel:[phone] Family History Family Member Type Diagnosis Age At Onset No Information Payers Payer name Insurance type Covered constitution party ID Authoriza tion(s) No Information Social History Type Description Quantity Date Captured Comments Sex Male Smoking Status No Information Chief Complaint And Reason For Visit No Information Reason For Referral Reason For Referral No Information History Of Present Illness Encounter Date Complaint History Of Prese nt Illness No Information Functional Status Date Functional Assessmen t No Information Instructions Date Instruction Additional Infor mation No Information Assessments Type Assessment Date No Information Patient Care Teams Name Effective Dates (start - stop) Status Members No Information
--- OUTSIDE RECORDS SUMMARY | 2024-10-04 02:41 | XMS_ITS | Referral Summary ---
Author Organization [place] [address] [address] [facility] [address] [place] [address] Care Team Providers Care Lye Machine Operator Name Role Phone Samir Pearson MD Primary Care Provider [phone] Dayton Soto MD Unavailable [phone] Encounters Date Type Department Care Team Description 09/25/2024 Telephone [facility] Cardiology [address] [place] [address] [address] [place] [address] Dayton Soto MD CHELA Ordered 09/25/2024 10:45 AM CDT Office Visit [facility] Cardiology at [address] [place] [phone] Dayton Soto MD History of mechanical aortic valve replacement (Primary Dx) 09/21/2024 Telephone [facility] Cardiology [address] [place] [address] [address] [place] [address] Dayton Soto MD 09/11/2024 Anticoagulation Visit [facility] [address] [place] [address] [address] [place] [address] Roxann Levi RN 08/17/2024 3:00 PM CDT Ancillary Procedure [facility] [address] [place] [address] [address] [place] [address] History of mechanical aortic valve replacement 08/16/2024 Anticoagulation Visit [facility] Cardiology [address] [place] [phone] Roxann Levi RN 08/14/2024 Telephone [facility] [address] [place] [address] Kerry Duval MA INR Due 07/18/2024 9:45 AM CDT Office Visit [facility] [address] [place] [address] Dayton Soto MD History of mechanical aortic valve replacement (Primary Dx); Need for lipid screening 07/17/2024 12:12 PM CDT - 07/17/2024 11:59 PM CDT Hospital Encounter [facility] - Imaging [address] [place] [address] Spondylolisthesis, grade 1; S/P lumbar spinal fusion Discharge Disposition: Discharge to home or self care 07/17/2024 12:45 PM CDT Office Visit [facility] with [facility] [address] [place] [address] Chris Yang MD PhD S/P lumbar spinal fusion (Primary Dx) 07/14/2024 Orders Only [facility] with [facility] [address] [facility] [address] [place] [address] Chris Yang MD PhD Spondylolisthesis, grade 1 (Primary Dx); S/P lumbar spinal fusion from Last 3 Months Allergies No known active allergies Medications cetirizine (ZyrTEC) 10 mg tablet take 1 tablet (10MG) by oral route every day 0 3 Active losartan (COZAAR) 100 mg tablet Take 1 tablet (100 mg total) by mouth every morning 9 Active rosuvastatin (CRESTOR) 20 mg tablet Take 1 tablet (20 mg total) by mouth daily after lunch 4 9 Active latanoprost (XALATAN) 0.005 % ophthalmic solution Administer 1 drop into both eyes nightly 1 Active sertraline (ZOLOFT) 100 mg tablet Take 1.5 tablets (150 mg total) by mouth every morning 3 Active aspirin (Ke Low Dose Aspirin) 81 mg enteric coated tablet Take 1 tablet (81 mg total) by mouth daily Do not resume taking until 01/06/24. 4 Active lidocaine (ASPERCREME) 4 % adhesive patch,medicate d Place 2 patches on the skin daily 30 patch 4 Active amoxicillin 500 mg capsule TAKE 4 CAPSULES BY MOUTH 1 HOUR PRIOR TO DENTAL APPOINTMENT 4 Active warfarin (COUMADIN) 2 mg tablet TAKE 2 TABLETS ON WEDNESDAY AND WEDNESDAY, AND TAKE 1 AND 1/2 TABLETS DAILY THE REST OF THE WEEK or as directed by physician 48 tablet 1 5 Active docusate sodium (COLACE) 100 mg capsuleIndicat ions:constipat ion Take 1 capsule (100 mg total) by mouth 2 (two) times a day as needed for constipation 45 capsule 4 025 Discontin ued(Patie nt Reported) warfarin (COUMADIN) 2 mg tablet TAKE 2 TABLETS ON WEDNESDAY AND WEDNESDAY, AND TAKE 1 AND 1/2 TABLETS DAILY THE REST OF THE WEEK or as directed by physician 48 tablet 1 5 025 Discontin ued(Reord er) Active Problems Problem Noted Date Diagnosed Date Spondylolisthesis, grade 1 12/30/2022 Cervical myelopathy 09/07/2022 Tear of right rotator cuff 01/16/2019 Overview (01/16/2019): Added automatically from request for surgery [id number] Nontraumatic complete tear of left rotator cuff 11/14/2018 Overview (11/14/2018): Added automatically from request for surgery [id number] History of mechanical aortic valve replacement 0 04/28/2018 Aortic valve disorders [I35.9] 08/20/2016 History of open heart surgery 10/25/2012 Overview (06/05/2016): HEART VALVE REPLAC NEC Immunizations Immunization Administration Dates Next Due Influenza, Quadrivalent, Rec ombinant, Egg Free, Preservative Free, Intramuscular 01/03/2019 Influenza, Quadrivalent, Spl it, Intramuscular 01/01/2018,11/28/2016,12/28/2015,02/01 Influenza, Trivalent, IM (MDV) 12/02/2013 Tdap 01/03/2019,10/06/2015 Social History Tobacco Use Types Packs/Day Years Used Date Smoking Tobacco: Never Smokeless Tobacco: Never Tobacco Cessation:Counseling Given: No Alcohol Use Standard Drinks/Week Comments No 0 (1 standard drink = 0.6 oz pur e alcohol) AUDIT-C Answer Date Recorded Q1: How often do you have a drink containing alcohol? Never 12/22/2023 Q2: How many drinks containi ng alcohol do you have on a typical day when you are drinking? Patient does not drink Q3: How often do you have si x or more drinks on one occasion? Never 12/22/2023 Personal Safety Answer Date Recorded Have you ever been in or are you currently in a harmful physical or emotional relationship or is someone making you feel afraid or unsafe? Denies 12/22/2023 Sex and Gender Information Value Date Recorded Sex Assigned at Not on file Legal Sex Male 1:29 PM [employer] RE[employer] Gender Identity Not on file Sexual Orientation Not on file Last Filed Vital Signs Vital Sign Reading Time Taken Comments Blood Pressure 124/78 09/25/2024 10:46 AM CDT Pulse 67 09/25/2024 10:46 AM CDT Temperature 36.4 C (97.5 F) 12/23/2023 7:36 AM CDT Respiratory Rate 16 12/23/2023 7:36 AM CDT Oxygen Saturation 98% 09/25/2024 10:46 AM CDT Inhaled Oxygen Concentration - - Weight 80.3 kg (177 lb) 09/25/2024 10:46 AM CDT Height 172.7 cm (5' 8) 09/25/2024 10:46 AM CDT Body Mass Index 26.91 09/25/2024 10:46 AM CDT Plan of Treatment Not on file Goals Goal Patient Goal Type Associated Problems Recent Progress Patient-Stated? Author CCM Chronic Pain Care Plan Chronic Care Management Risa Menard, AMRIK Note: Problem: Chronic Pain Goals: 1. Minimize further functional decline 2. Maximize quality of life 3. Control pain Strategies: - Activity/exercise program recommendation - Conservative stepwise pain medicine strategy with multi-disciplinary approach - Recommend healthy lifestyle strategies and compensatory methods as needed Reduce the likelihood of falling Lifestyle Risa Menard RN Note: Below are four things you [...] on stairs Contact your local community or [facility] for information on exercise, fall prevention programs, or options for improving home safety. Medical Devices Implanted Type Area Bottle Blowing Machine Tender Device Identifier Shelf Expiration Date Model / Serial / Lot Spineology Inc Graft Bone Tube 3/4 Filled Divrtd G2 560520 - [id number] - [id number] Implanted:Qty: 1 on 12/22/2023 by Chris Yang MD PhD at [facility] Bone N/A: Spine Lumbar Spineology Inc 07/08/2025 101720 / [id number] 1138 / Medtronic Inc Bmp Infuse Sm [id number] - Sna - [id number] Implanted:Qty: 1 on 12/22/2023 by Chris Yang MD PhD at [facility] Bone N/A: Spine Lumbar Medtronic Inc [id number] 11/29/2024 [id number] / NA / [id number] Spineology Inc Graft Bone Tube 3/4 Filled Divrtd G2 939165 - [id number] - [id number] Implanted:Qty: 1 on 12/22/2023 by Chris Yang MD PhD at [facility] Bone N/A: Spine Lumbar Spineology Inc 08/16/2025 788443 / [id number] 1113 / [id number] Nuvasive Inc Graft Bone Filler Attrax 6cc Putty 4431950 - Sna - [id number] Implanted:Qty: 1 on 12/22/2023 by Chris Yang MD PhD at [facility] Bone N/A: Spine Lumbar Nuvasive Inc [id number] 05/17/2027 5529548 / NA / [id number] Nuvasive Inc Graft Bone Filler Attrax 6cc Putty 4945027 - Sna - [id number] Implanted:Qty: 1 on 12/22/2023 by Chris Yang MD PhD at [facility] Bone N/A: Spine Lumbar Nuvasive Inc [id number] 12/16/2027 5417387 / NA / [id number] Globus Medical 1134.01 Creo Mis 30mm Modular Polyaxial Tulip Head Screw Bone - Sna - [id number] Implanted:Qty: 4 on 12/22/2023 by Chris Yang MD PhD at [facility] Screw N/A: Spine Lumbar [employer] 1134.0100 / NA / Glob[employer] Medical 1134.001 Creo Spinal Cap Locking Nonsterile Mis - Sna - [id number] Implanted:Qty: 4 on 12/22/2023 by Chris Yang MD PhD at [facility] Screw N/A: Spine Lumbar [employer] 1134.0010 / NA / Glob[employer] Medical 1134.704 Creo Mis 5.5mm 40mm Curve Ronaldo Spinal Titanium - Sna - [id number] Implanted:Qty: 2 on 12/22/2023 by Chris Yang MD PhD at [facility] Screw N/A: Spine Lumbar [employer] 1134.7040 / NA / Gl[employer] Medical Creo 8.5mm 40mm Cannulated Modular Spine Screw Bone 1067.4840 - Sna - [id number] Implanted:Qty: 1 on 12/22/2023 by Chris Yang MD PhD at [facility] Screw N/A: Spine Lumbar [employer] 1067.4840 / NA / [employer] Medical Creo 7.5mm 50mm Cannulated Modular Spine Screw Bone 1067.4750 - Sna - [id number] Implanted:Qty: 2 on 12/22/2023 by Chris Yang MD PhD at [facility] Screw N/A: Spine Lumbar [employer] 1067.4750 / NA / [employer] Medical Creo Amp 7.5mm 40mm Cannulated Modular Spine Screw Bone 1067.4740 - Sna - [id number] Implanted:Qty: 1 on 12/22/2023 by Chris Yang MD PhD at [facility] Screw N/A: Spine Lumbar [employer] 1067.4740 / NA / Valve-12/02/2009 Implanted:2009 (Quantity not on file) N/A: Aortic Valve Arthrex Inc Ar-1927bct Corkscrew Suturetape 5.5mm 14.7mm Bioabsorbable Full Thread 1.3mm - S00 - [id number] Implanted:Qty: 1 on 12/01/2018 by Eric Hughes MD at [facility] [place] Left: Shoulder Arthrex Inc 08/28/2020 AR-1927BCT / 00 / [id number] Arthrex Inc Ar-1927bct Corkscrew Suturetape 5.5mm 14.7mm Bioabsorbable Full Thread 1.3mm - S00 - [id number] Implanted:Qty: 1 on 12/01/2018 by Eric Hughes MD at [facility] [place] Left: Shoulder Arthrex Inc 09/28/2020 AR-1927BCT / 00 / [id number] Arthrex Inc Ar-2324 Bcm Swivelock 4.75mm 24.5mm Self Punch Vent Shoulder [place] Suture - [id number] Implanted:Qty: 1 on 12/01/2018 by Eric Hughes MD at [facility] [place] Left: Shoulder Arthrex Inc 08/28/2020 AR-2324BCM / / [id number] Arthrex Inc Ar-2267 Slps Large Eyelet Pectoralis Button Fixation Latex Free - [id number] Implanted:Qty: 1 on 12/01/2018 by Eric Hughes MD at [facility] [place] Left: Shoulder Arthrex Inc 07/30/2023 AR-2267 / / [id number] Arthrex Inc Ar-2267 Slps Large Eyelet Pectoralis Button Fixation Latex Free - [id number] Implanted:Qty: 1 on 02/23/2019 by Eric Hughes MD at [facility] Right: Shoulder Arthrex Inc 11/29/2023 AR-2267 / / [id number] Arthrex Inc Ar-1927bct Corkscrew Suturetape 5.5mm 14.7mm Bioabsorbable Full Thread 1.3mm - [id number] Implanted:Qty: 1 on 02/23/2019 by Eric Hughes MD at [facility] [place] Right: Shoulder Arthrex Inc 12/29/2020 AR-1927BCT / / [id number] Arthrex Inc Ar-1927bct Corkscrew Suturetape 5.5mm 14.7mm Bioabsorbable Full Thread 1.3mm - [id number] Implanted:Qty: 1 on 02/23/2019 by Eric Hughes MD at [facility] [place] Right: Shoulder Arthrex Inc 12/29/2020 AR-1927BCT / / [id number] Arthrex Inc Ar-2324 Bcm Swivelock 4.75mm 24.5mm Self Punch Vent Shoulder [place] Suture - [id number] Implanted:Qty: 1 on 02/23/2019 by Eric Hughes MD at [facility] [place] Right: Shoulder Arthrex Inc 09/28/2020 AR-2324BCM / / [id number] Arthrex Inc Ar-2324 Bcm Swivelock 4.75mm 24.5mm Self Punch Vent Shoulder [place] Suture - [id number] Implanted:Qty: 1 on 02/23/2019 by Eric Hughes MD at [facility] Right: Shoulder Arthrex Inc 09/28/2020 AR-2324BCM / / [id number] Cerapedics Inc Allograft Bone Putty 2.5cc 700-025 - [id number] Implanted:Qty: 1 on 09/28/2022 by Chris Yang MD PhD at [facility] N/A: Spine Cervical Cerapedics Inc [id number] 12/29/2024 700-025 / / [id number] Allosource Canpac Nonpurge Frozen Graft 50cc Bone [id number] - [id number] Implanted:Qty: 1 on 09/28/2022 by Chris Yang MD PhD at [facility] N/A: Spine Cervical Allosource 07/04/2027 [id number] / / [id number] Jeffry Biomet Inc Virage Closure Top Lid Sterilization Nonsterile Disposable Screw 07.27750.001 - [id number] Implanted:Qty: 8 on 09/28/2022 by Chris Yang MD PhD at [facility] N/A: Spine Cervical JEFFRY BIOMET SPINE INC 07.28363.0 01 / / Jeffry Bi[employer] Inc Virage 3.5mm 12mm Polyaxial Spine Screw Bone Nonsterile 07.32604.005 - [id number] Implanted:Qty: 2 on 09/28/2022 by Chris Yang MD PhD at [facility] N/A: Spine Cervical JEFFRY BIOMET SPINE INC 07.00717.0 05 / / Jeffry Biomet Inc Virage 3.5mm 14mm Polyaxial Spine Screw Bone Nonsterile 07.60997.007 - [id number] Implanted:Qty: 6 on 09/28/2022 by Chris Yang MD PhD at [facility] N/A: Spine Cervical JEFFRY BIOMET SPINE INC 07.60423.0 07 / / Jeffry [employer] Inc Virage 3.5mm 50mm Curve Ronaldo Spinal Titanium Nonsterile 07.03959.003 - [id number] Implanted:Qty: 2 on 09/28/2022 by Chris Yang MD PhD at [facility] N/A: Spine Cervical JEFFRY BIOMET SPINE INC 07.39970.0 03 / / Spineology Inc [place]elle Fusion Optimesh Multiplanar Expand Interbody Sys 315-0025 - [id number] Implanted:Qty: 2 on 03/26/2023 by Chris Yang MD PhD at [facility] N/A: Spine Lumbar Spineology Inc 12/30/2028 315-0025 / / [id number] Medtronic Inc Infuse Kit Xs Graft Bone Rhbmp-2 Bovine Collagen Lumbar Taper 5044881 - [id number] Implanted:Qty: 1 on 03/26/2023 by Chris Yang MD PhD at [facility] N/A: Spine Lumbar Medtronic Inc [id number] 03/01/2024 5944069 / / [id number] Cerapedics Inc Allograft Bone Putty 2.5cc 700-025 - [id number] Implanted:Qty: 1 on 03/26/2023 by Chris Yang MD PhD at [facility] N/A: Spine Lumbar Cerapedics Inc [id number] 04/28/2025 700-025 / / [id number] Spineology Inc Screw Spinal 6.5x40mm Purlear Pedicular Fix Sys Strl 670-6540 - [id number] Implanted:Qty: 1 on 03/26/2023 by Chris Yang MD PhD at [facility] N/A: Spine Lumbar Spineology Inc 10/30/2028 670-6540 / / [id number] Spineology Inc Set Spinal Purlear Pedicular Fix Sys Strl Screw Pkg 670-0007 - [id number] Implanted:Qty: 1 on 03/26/2023 by Chris Yang MD PhD at [facility] N/A: Spine Lumbar Spineology Inc 10/30/2028 670-0007 / / [id number] Spineology Inc Screw Spinal 6.5x45mm Purlear Pedicular Fix Sys Strl 670-6545 - [id number] Implanted:Qty: 1 on 03/26/2023 by Chris Yang MD PhD at [facility] N/A: Spine Lumbar Spineology Inc 10/30/2028 670-6545 / / [id number] Spineology Inc Set Spinal Purlear Pedicular Fix Sys Strl Screw Pkg 670-0007 - [id number] Implanted:Qty: 1 on 03/26/2023 by Chris Yang MD PhD at [facility] N/A: Spine Lumbar Spineology Inc 10/30/2028 670-0007 / / [id number] Spineology Inc Screw Spinal 6.5x45mm Purlear Pedicular Fix Sys Strl 670-6545 - [id number] Implanted:Qty: 1 on 03/26/2023 by Chris Yang MD PhD at [facility] N/A: Spine Lumbar Spineology Inc 10/30/2028 670-6545 / / [id number] Spineology Inc Set Spinal Purlear Pedicular Fix Sys Strl Screw Pkg 670-0007 - [id number] Implanted:Qty: 1 on 03/26/2023 by Chris Yang MD PhD at [facility] N/A: Spine Lumbar Spineology Inc 10/30/2028 670-0007 / / [id number] Spineology Inc Screw Spinal 6.5x40mm Purlear Pedicular Fix Sys Strl 670-6540 - [id number] Implanted:Qty: 1 on 03/26/2023 by Chris Yang MD PhD at [facility] N/A: Spine Lumbar Spineology Inc 08/29/2028-6540 / / [id number] Spineology Inc Set Spinal Purlear Pedicular Fix Sys Strl Screw Pkg 670-0007 - [id number] Implanted:Qty: 1 on 03/26/2023 by Chrsi Yang MD PhD at [facility] N/A: Spine Lumbar Spineology Inc 08/29/2028-0007 / / [id number] Spineology Inc Graft Bone Tube 3/4 Filled Divrtd G2 886967 - [id number] - [id number] Implanted:Qty: 1 on 03/26/2023 by Chris Yang MD PhD at [facility] N/A: Spine Lumbar Spineology Inc 12/01/2024 783104 / [id number] 1136 / Spineology Inc Graft Bone Tube 3/4 Filled Divrtd G2 282300 - [id number] - [id number] Implanted:Qty: 1 on 03/26/2023 by Chris Yang MD PhD at [facility] N/A: Spine Lumbar Spineology Inc 12/01/2024 758447 / [id number] 1136 / Spineology Inc Ronaldo Spinal 40mm Crv Purlear Pedicular Fix Sys Strl 670-4040 - [id number] Implanted:Qty: 1 on 03/26/2023 by Chris Yang MD PhD at [facility] N/A: Spine Lumbar Spineology Inc 10/30/2025 670-4040 / / [id number] Spineology Inc Screw Spinal 7.5x40mm Purlear Pedicular Fix Sys Strl 670-6540 - [id number] Implanted:Qty: 1 on 03/26/2023 by Chris Yang MD PhD at [facility] N/A: Spine Lumbar Spineology Inc 07/30/2028 670-7540 / / [id number] Spineology Inc Set Spinal Purlear Pedicular Fix Sys Strl Screw Pkg 670-000 - [id number] Implanted:Qty: 1 on 03/26/2023 by Chris Yang MD PhD at [facility] N/A: Spine Lumbar Spineology Inc 07/30/2028-0007 / / [id number] Spineology Inc Ronaldo Spinal 40mm Crv Purlear Pedicular Fix Sys Strl 6704047 - [id number] Implanted:Qty: 1 on 03/26/2023 by Chris Yang MD PhD at [facility] N/A: Spine Lumbar Spineology Inc 09/30/2027 670-4040 / / [id number] Spineology Inc Graft Bone Tube 3/4 Filled Divrtd G2 505183 - [id number] - [id number] Implanted:Qty: 1 on 03/26/2023 by Chris Yang MD PhD at [facility] N/A: Spine Lumbar Spineology Inc 12/01/2024 412080 / [id number] 1136 / Spineology Inc Cage Fusion Optimesh Expand Interbody Sys Spinal Polymeric 3003032 - [id number] Implanted:Qty: 1 on 03/26/2023 by Chris Yang MD PhD at [facility] N/A: Spine Lumbar Spineology Inc 11/30/2027 300-3032 / / [id number] Spineology Inc Graft Bone Tube 3/4 Filled Divrtd G2 490874 - [id number] - [id number] Implanted:Qty: 1 on 03/26/2023 by Chris Yang MD PhD at [facility] N/A: Spine Lumbar Spineology Inc 12/01/2024 733662 / [id number] 1136 / Procedures Procedure Name Priority Date/Time Associated Diagnosis Comments PROTIME-INR Routine 09/11/2024 PROTIME-INR Routine 08/17/2024 9:28 PM CDT TRANSTHORACIC ECHO (TTE) COMPLETE W DOPPLER/CF WO CONTRAST Routine 08/17/2024 3:53 PM CDT History of mechanical aortic valve replacement POCT LIPID PANEL Routine 07/18/2024 10:1 7 AM CDT Need for lipid screening XR LUMBAR SPINE AP LAT FLEX EX Schedule Routine, Read Routine (OP Routine) 07/17/2024 12:28 PM CDT Spondylolisthesis, grade 1 S/P lumbar spinal fusion from Last 3 Months Results * (ABNORMAL) Protime-INR (09/11/2024) INR 2.50(A) 0.90 - 1.10 EXTERNAL LAB Blood Historical Provider MD LAB BLOOD ORDERABLES Edit ed Result - Final EXTERNAL LAB * (ABNORMAL) Protime-INR (08/17/2024 9:28 PM CDT) INR 2.30(A) 0.90 - 1.10 EXTERNAL LAB Blood Historical Provider LAB BLOOD ORDERABLES Edit ed Result - Final EXTERNAL LAB * TRANSTHORACIC ECHO (TTE) COMPLETE W DOPPLER/CF WO CONTRAST (08/17/2024 3:53 PM CDT) Estimated EF 55-60 % CONS SCIMAGE EF Mod BP 51 % CONS SCIMAGE Anatomical Region Laterality Modality Ultrasound 08/17/2024 3:13 PM CDT Narrative 08/17/2024 4:39 PM CDT [facility] [address] [facility] [address], [place] [address] [address] [facility] [address], [place] [address] P:[phone] P:[phone] Echocardiographic Report Patient Name: HARPREET JIMENEZ G : 1955 Study Date: 08/17/2024 3:13:20 PM Gender: M Tech: DLS Location: [place] Ref Provider: DAYTON SOTO Height(Cm): 173 BSA: 1.98 Weight(Kg): 81.6 Heart Rate: 68 BP: 130 / 70 Quality: Good Order Provider: DAYTON SOTO PROCEDURES: Echocardiographic Report: Transthoracic echocardiogram with complete 2D, M-Mode, and color Doppler examination. With Strain Analysis. INDICATIONS: Z95.2 Presence of prosthetic heart valve. MEASUREMENTS: 2D/MM Value Range Doppler Value Range EF Mod BP 51 % [ 52 - 72 ] SERENITY Vmax 1.21 cm2 [ 2.00 - 4.00 ] Estimated EF 55-60 % AV Mean PG 18 mmHg LVIDd 2D 4.59 cm [ 4.20 - 5.80 ] AV Peak Don 2.85 m/s [ 1.00 - 1.70 ] LVIDs 2D 3.24 cm [ 2.50 - 4.00 ] AV Peak PG 33 mmHg LVPWd 2D 0.98 cm [ 0.60 - 1.00 ] AV VTI 56.49 cm IVSd 2D 0.96 cm [ 0.60 - 1.00 ] LVOT Diam 2.05 cm [ 1.70 - 2.10 ] LA Volume Index 34 cc/m2 [ 16 - 34 ] LVOT Peak Don 1.05 m/s [ 0.70 - 1.10 ] LVOT VTI 22.36 cm MV E Peak Don 0.51 m/s [ 0.60 - 1.30 ] MV A Peak Don 0.89 m/s [ 1.00 - 1.20 ] MV Decel Time 137 msec [ 104 - 258 ] PV Peak Don 1.21 m/s [ 0.40 - 0.80 ] TR Peak Don 2.56 m/s [ 1.00 - 2.80 ] TR Peak PG 26 mmHg Lateral E` 0.07 m/s [ 0.10 - 0.15 ] E` 0.05 m/s E/E` 7 2D/MM Value Range Doppler Value Range - FINDINGS: Interpretation Site: Exam was interpreted at [facility]. Left Ventricle: Normal left ventricular systolic function. No focal wall motion abnormalities. Normal left ventricular size. Mild concentric left ventricular hypertrophy. Mild enlargement of left ventricle cavity. Impaired diastolic relaxation Grade I. Ejection fraction is measured at 51 %. Ejection Fraction is visually estimated to be 55-60 %. Global Longitudinal Strain is -16 %. GLS is borderline. Right Ventricle: Normal right ventricular size. Normal right ventricular systolic function. Left Atrium: There is mild enlargement of left atrium. Right Atrium: The right atrium is normal in size. Atrial Septum: Atrial septum bowed to the left consistent with elevated right atrial pressures. Mitral Valve: Mitral valve leaflets appear mildly thickened. Mild mitral valve regurgitation. There is no hemodynamically significant mitral stenosis by Doppler. Aortic Valve: Moderate aortic stenosis. Mean gradient of 18.0 mmHg. Valve area of 1.2 cm2. Mild aortic valve regurgitation. Difficult to assess due to reverberation artifact but grossly it appears to be an abnormal appearing aortic valve prosthesis. Gradients abnormal for valve type and size. Tricuspid Valve: Normal appearance of the tricuspid valve. Normal right ventricular systolic pressure. Estimated peak RVSP is 30-35 mmHg. Mild tricuspid regurgitation. Pulmonic Valve: Normal appearance of the pulmonic valve. No pulmonic stenosis. Mild pulmonic regurgitation. Pericardium: Normal pericardium with no significant pericardial effusion. Aorta: Sinus of Valsalva is dilated. Sinus of Valsalva 4.3 cm. IVC: Normal size and normal respiratory collapse consistent with normal right atrial pressure (<5 mmHg). CONCLUSIONS: Normal left ventricular systolic function. No focal wall motion abnormalities. Normal left ventricular size. Mild concentric left ventricular hypertrophy. Mild enlargement of left ventricle cavity. Impaired diastolic relaxation Grade I. Ejection fraction is measured at 51 %. Ejection Fraction is visually estimated to be 55-60 %. Global Longitudinal Strain is -16 %. GLS is borderline. There is mild enlargement of left atrium. Mitral valve leaflets appear mildly thickened. Mild mitral valve regurgitation. Moderate aortic stenosis. Mean gradient of 18.0 mmHg. Valve area of 1.2 cm2. Mild aortic valve regurgitation. Difficult to assess due to reverberation artifact but grossly it appears to be an abnormal appearing aortic valve prosthesis. Gradients abnormal for valve type and size. Mild tricuspid regurgitation. Mild pulmonic regurgitation. Sinus of Valsalva is dilated. Sinus of Valsalva 4.3 cm. Normal sinus rhythm. Electronically Signed By: Ry Qureshi MD 08/17/2024 4:38:44 PM CDT Procedure Note Ry Qureshi MD - 08/17/2024 [facility] [address] [facility] [address] [address] [address] [facility] [address], [place] [address] P:[phone] P:[phone] Echocardiographic Report Patient Name: HARPREET JIMENEZ G : 1955 Study Date: 08/17/2024 3:13:20 PM Gender: M Tech: [facility] Location: [facility] Provider: DAYTON SOTO Height(Cm): 173 BSA: 1.98 Weight(Kg): 81.6 Heart Rate: 68 BP: 130 / 70 Quality: Good Order Provider: DAYTON SOTO PROCEDURES: Echocardiographic Report: Transthoracic echocardiogram with complete 2D, M-Mode, and color Dopplerexamination. With Strain Analysis. INDICATIONS: Z95.2 Presence of prosthetic heart valve. MEASUREMENTS: 2D/MM Value Range Doppler ValueRange EF Mod BP 51 % [ 52 - 72 ] SERENITY Vmax 1.21cm2 [ 2.00 - 4.00 ] Estimated EF 55-60 % AV Mean PG 18mmHg LVIDd 2D 4.59 cm [ 4.20 - 5.80 ] AV Peak Don 2.85m/s [ 1.00 - 1.70 ] LVIDs 2D 3.24 cm [ 2.50 - 4.00 ] AV Peak PG 33mmHg LVPWd 2D 0.98 cm [ 0.60 - 1.00 ] AV VTI 56.49cm IVSd 2D 0.96 cm [ 0.60 - 1.00 ] LVOT Diam 2.05 cm[ 1.70 - 2.10 ] LA Volume Index 34 cc/m2 [ 16 - 34 ] LVOT Peak Don 1.05m/s [ 0.70 - 1.10 ] LVOT VTI 22.36 cm MV E Peak Don 0.51 m/s [ 0.60 - 1.30 ] MV A Peak Don 0.89 m/s [ 1.00 - 1.20 ] MV Decel Time 137 msec [ 104 - 258 ] PV Peak Don 1.21 m/s [ 0.40 - 0.80 ] TR Peak Don 2.56 m/s [ 1.00 - 2.80 ] TR Peak PG 26 mmHg Lateral E` 0.07 m/s [ 0.10 - 0.15 ] E` 0.05 m/s E/E` 7 2D/MM Value Range Doppler ValueRange - FINDINGS: Interpretation Site: Exam was interpreted at [facility]. Left Ventricle: Normal left ventricular systolic function. No focal wall motionabnormalities. Normal left ventricular size. Mild concentric left ventricular hypertrophy. Mildenlargement of left ventricle cavity. Impaired diastolic relaxation Grade I. Ejectionfraction is measured at 51 %. Ejection Fraction is visually estimated to be 55-60 %.Global Longitudinal Strain is -16 %. GLS is borderline. Right Ventricle: Normal right ventricular size. Normal right ventricular systolicfunction. Left Atrium: There is mild enlargement of left atrium. Right Atrium: The right atrium is normal in size. Atrial Septum: Atrial septum bowed to the left consistent with elevated right atrialpressures. Mitral Valve: Mitral valve leaflets appear mildly thickened. Mild mitral valveregurgitation. There is no hemodynamically significant mitral stenosis by Doppler. Aortic Valve: Moderate aortic stenosis. Mean gradient of 18.0 mmHg. Valve area of 1.2cm2. Mild aortic valve regurgitation. Difficult to assess due to reverberation artifact butgrossly it appears to be an abnormal appearing aortic valve prosthesis. Gradientsabnormal for valve type and size. Tricuspid Valve: Normal appearance of the tricuspid valve. Normal right ventricularsystolic pressure. Estimated peak RVSP is 30-35 mmHg. Mild tricuspid regurgitation. Pulmonic Valve: Normal appearance of the pulmonic valve. No pulmonic stenosis. Mildpulmonic regurgitation. Pericardium: Normal pericardium with no significant pericardial effusion. Aorta: Sinus of Valsalva is dilated. Sinus of Valsalva 4.3 cm. IVC: Normal size and normal respiratory collapse consistent with normal rightatrial pressure (<5 mmHg). CONCLUSIONS: Normal left ventricular systolic function. No focal wall motionabnormalities. Normal left ventricular size. Mild concentric left ventricular hypertrophy. Mildenlargement of left ventricle cavity. Impaired diastolic relaxation Grade I. Ejectionfraction is measured at 51 %. Ejection Fraction is visually estimated to be 55-60 %.Global Longitudinal Strain is -16 %. GLS is borderline. There is mild enlargement of left atrium. Mitral valve leaflets appear mildly thickened. Mild mitral valveregurgitation. Moderate aortic stenosis. Mean gradient of 18.0 mmHg. Valve area of 1.2cm2. Mild aortic valve regurgitation. Difficult to assess due to reverberation artifact butgrossly it appears to be an abnormal appearing aortic valve prosthesis. Gradientsabnormal for valve type and size. Mild tricuspid regurgitation. Mild pulmonic regurgitation. Sinus of Valsalva is dilated. Sinus of Valsalva 4.3 cm. Normal sinus rhythm. Electronically Signed By: Ry Qureshi MD 08/17/2024 4:38:44 PM CDT Dayton Soto MD CV ECHO PROCEDURES Final Result * POCT lipid panel (07/18/2024 10:17 AM CDT) Cholesterol, POC 137 <200 MG/DL HDL, POC 53 >=40 mg/dL Triglycerides, POC 99 <=149 mg/dL LDL Cholesterol POC 64 <=129 mg/dL Chol/HDL Ratio, POC 1.2 NONE Non-HDL Cholesterol, POC 84 NONE mg/dL Cholesterol Total, POC 137 30 - 199 mg/dL Capillary blood 07/18/2024 1 0:17 AM CDT Dayton Soto MD POINT OF CARE TEST ORDER ARANZA Final Result * XR Spine Lumbar Ap Lat Flex Ext min 4 Views (07/17/2024 12:28 PM CDT) Anatomical Region Laterality Modality L-spine N/A Digital Radiogra phy 07/17/2024 4:34 PM CDT Impressions 07/17/2024 4:34 PM CDT 1. Status post a posterior fusion at the L4-L5 level which is within expected limits. 2. Grade 1 anterolisthesis at L4-L5. 3. Mild degenerative disc disease at the L2-L3 and L3-L4. COMMENT: Please see above for additional findings. Electronically signed by: Cholo Oneill M.D. Narrative 07/17/2024 4:34 PM CDT XR SPINE LUMBAR AP LAT FLEX EXT MIN 4 VIEWS HISTORY: Spondylolisthesis, grade 1 COMPARISON: None available. FINDINGS: The patient has undergone a posterior fusion at the L4-L5 level. There is a density consistent with interbody fusion material are device which appears to be within expected limits. The bony pedicles are intact. The arc of lumbar lordosis is within expected limits. There is grade 1 anterolisthesis of L4 with respect to L5 by approximately 3 mm. This level is transfixed by the posterior fusion. There is no evidence of abnormal motion or instability between flexion and extension lateral views of the lumbar spine. There is moderate narrowing of the L4-L5 intervertebral disc space. Mild narrowing of the L3-L4 and L2-L3 intervertebral disc spaces is noted. Spur formation is noted anteriorly projecting from the vertebral bodies at multiple levels. There is no evidence of significant degenerative joint disease. Procedure Note Cholo Oneill MD - 07/17/2024 XR SPINE LUMBAR AP LAT FLEX EXT MIN 4 VIEWS HISTORY: Spondylolisthesis, grade 1 COMPARISON: None available. FINDINGS: The patient has undergone a posterior fusion at the L4-L5 level. There is a density consistent with interbody fusion material are device which appears to be within expected limits. The bony pedicles are intact. The arc of lumbar lordosis is within expected limits. There is grade 1 anterolisthesis of L4 with respect to L5 by approximately 3 mm. This level is transfixed by the posterior fusion. There is no evidence of abnormal motion or instability between flexion and extension lateral views of the lumbar spine. There is moderate narrowing of the L4-L5 intervertebral disc space. Mild narrowing of the L3-L4 and L2-L3 intervertebral disc spaces is noted. Spur formation is noted anteriorly projecting from the vertebral bodies at multiple levels. There is no evidence of significant degenerative joint disease. IMPRESSION: 1. Status post a posterior fusion at the L4-L5 level which is within expected limits. 2. Grade 1 anterolisthesis at L4-L5. 3. Mild degenerative disc disease at the L2-L3 and L3-L4. COMMENT: Please see above for additional findings. Electronically signed by: Cholo Oneill M.D. Chris Yang MD PhD IMG XR PROCEDURES Final R esult from Last 3 Months Insurance [facility] [facility] A[employer]NA MEDICARE GOLD A[employer]NA MEDICARE GOLD A[employer] MEDICARE GOLD Advance Directives For more information, please contact: [phone] Documents on File Type Date Recorded Patient Automotive Service Assistant Lazarus mike ADVANCE DIRECTIVE 09/24/2022 4:11 PM PIPER [employer]LE ADVANCE DIRECTIVE 09/24/2022 4:11 PM POWER OF ROOFER APPRENTICE-MEDICAL * Full Code (Latest Code Status on File) Date Activated Date Inactivated Comments 12/22/2023 5:27 PM 12/23/2023 6:51 PM * Full Code Date Activated Date Inactivated Comments 03/26/2023 2:46 PM 03/28/2023 3:49 PM * Full Code Date Activated Date Inactivated Comments 09/28/2022 2:53 PM 09/30/2022 4:37 PM Care Teams Lye Machine Operator Relationship Specialty Start Date End Date Samir Pearson MD [address] [place] [id number] PCP - General 05/29/16 Dayton Soto MD [address] [address] Consulting Physician Cardiology 12/30/22
--- OUTSIDE RECORDS SUMMARY | 2024-10-04 02:41 | XMS_ITS | Clinical Summary ---
Author Organization [facility] [address] [facility] [address] Address [address] [place] [address] Care Team Providers Care Asphalt Machine Operator Name Role Phone Samir Pearson MD Primary Care Provider [phone] Dayton Soto MD Unavailable Allergies No known active allergies Medications cetirizine [...] (01/16/2019): Added automatically from request for surgery [id number] Nontraumatic complete tear of left rotator cuff 11/14/2018 Overview (11/14/2018): Added automatically from request for surgery [id number] History of mechanical aortic valve replacement 0 04/28/2018 Aortic valve disorders [I35.9] 08/20/2016 History of open heart surgery 10/25/2012 Overview (06/05/2016): HEART VALVE REPLAC NEC Encounters Date Type Department Care Team Description 09/25/2024 10:45 AM CDT Office Visit [facility] Cardiology at [address] [place] [phone] Dayton Soto MD History of mechanical aortic valve replacement (Primary Dx) 09/25/2024 Telephone [facility] [address] [facility] [address] [place] [address] Dayton Soto MD CHELA Ordered 09/21/2024 Telephone [facility] [address] [facility] [address] [place] [address] Dayton Soto MD 09/11/2024 Anticoagulation Visit [facility] [address] [place] [address] [address] [place] [phone] Roxann Levi, RN 08/17/2024 3:00 PM CDT Ancillary Procedure [facility] [address] [place] [address] [address] [place] [phone] History of mechanical aortic valve replacement 08/16/2024 Anticoagulation Visit [facility] [address] [place] [address] [address] [place] [phone] Roxann Levi, AMRIK 08/14/[address] [place] [phone] Kerry Duval MA INR Due 07/18/2024 9:45 AM CDT Office Visit [facility] [address] [place] [address] [address] [place] [phone] Dayton Soto MD History of mechanical aortic valve replacement (Primary Dx); Need for lipid screening 07/17/2024 12:45 PM CDT Office Visit [facility] [address] [address] Chris Yang MD PhD S/P lumbar spinal fusion (Primary Dx) 07/17/2024 12:12 PM CDT - 07/17/2024 11:59 PM CDT Hospital Encounter [facility] [address] [place] [address] Spondylolisthesis, grade 1; S/P lumbar spinal fusion Discharge Disposition: Discharge to home or self care 07/14/2024 Orders Only [facility] [address] [place] [address] Chris Yang MD PhD Spondylolisthesis, grade 1 (Primary Dx); S/P lumbar spinal fusion from Last 3 Months Immunizations Immunization Administration Dates Next Due Influenza, Quadrivalent, Rec ombinant, Egg Free, Preservative Free, Intramuscular 01/03/2019 Influenza, Quadrivalent, Spl it, Intramuscular 01/01/2018,11/28/2016,12/28/2015,02/01 Influenza, Trivalent, IM (MDV) 12/02/2013 Tdap 01/03/2019,10/06/2015 Surgical History Surgery Date Site/Laterality Comments FLUORO GUIDED ASPIRATION OR INJECTION LARGE JOINT BILATERAL 10/10/2018 Bilateral AORTIC VALVE REPLACEMENT 03/01/2009 - 02/28/2010 no problems since CERVICAL FUSION 03/01/1990 - 02/28/1991 no hardware placed. Pt reports no limitations moving neck up, down or side to side. CLEFT LIP REPAIR 03/01/1956 - 1955 no problems since SHOULDER ARTHROSCOPY W/ ROTATOR CUFF REPAIR 12/01/2018 Left open bicep COLONOSCOPY BACK SURGERY 04/26/2023 [facility] Medical History Medical History Date Comments Hypertension well controlled with meds Hyperlipidemia well controlled with meds Anxiety well controlled with meds Arthritis osteoarthritis-- shoulders, elbows Glaucoma well controlled with meds Seasonal allergies Aortic stenosis Dermatitis Disc disorder of lumbar region Lumbar stenosis Family History Medical History Relation Name Comments Cancer Father Cardiomyopathy Father Cardiomyopath y; Diabetes Father Hypertension Father Hypertension; Stroke Father Stroke; Cause o f : Stroke Stent Mother Coronary Stent Placement; pacemaker Mother Anesthesia problems Neg Hx Malig Hypertension Neg Hx Malig Hyperthermia Neg Hx Pseudochol deficiency Neg Hx Relation Name Status Comments Father Mother Social History Tobacco Use Types Packs/Day Years [...] on file 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 Gender Identity Not on file Sexual Orientation Not on file Obstetrics History Last Filed Vital Signs Vital Sign Reading [...] 09/25/2024 10:46 AM CDT Plan of Treatment Health Maintenance Due Date Last Done Comments Colon Cancer Screening-Colonoscopy 1955 Depression Screening 1955 Hepatitis C Screening 1955 Prostate Cancer Screening-PSA 1955 Hepatitis B Screening 1975 Pneumococcal vaccine 65+ (1 of 1 - PCV) 2007 Zoster Vaccine (1 of 2) 2007 Well Visit 65+ 2022 Influenza Vaccine (#1) 2024 9, 01/01/2018, 11/28/2016, Additional history exists Fall Risk Assessment 12/21/2024 12/22/2023, 07/17/19 DTaP/Tdap/Td Vaccine (3 - Td or Tdap) 01/03/2029 01/03/2019, 10/06/2015 Goals Goal Patient Goal Type Associated Problems [...] on stairs Contact your local community or senior center for information on exercise, fall prevention programs, or options for improving home safety. Medical Devices Implanted Type Area [employer] Device Identifier Shelf Expiration Date Model / Serial / Lot Spineology Inc Graft Bone Tube 3/4 Filled Divrtd G2 159765 - [id number] - [id number] Implanted:Qty: 1 on 12/22/2023 by Chris Yang MD PhD at [facility] Bone N/A: Spine Lumbar Spineology Inc 07/08/2025 818324 / [id number] / Medtronic Inc Bmp Infuse Sm [id number] - Sna - [id number] Implanted:Qty: 1 on 12/22/2023 by Chris Yang MD PhD at [facility] Bone N/A: Spine Lumbar Medtronic Inc [id number] 11/29/2024 3738953 / NA / [id number] Spineology Inc Graft Bone Tube 3/4 Filled Divrtd G2 390690 - [id number] - [id number] Implanted:Qty: 1 on 12/22/2023 by Chris Yang MD PhD at [facility] Bone N/A: Spine Lumbar Spineology Inc 08/16/2025 563415 / [id number] / [id number] Nuvasive Inc Graft Bone Filler Attrax 6cc Putty 3146632 - Sna - [id number] Implanted:Qty: 1 on 12/22/2023 by Chris Yang MD PhD at [facility] Bone N/A: Spine Lumbar Nuvasive Inc [id number] 05/17/2027 0982416 / NA / [id number] Nuvasive Inc Graft Bone Filler Attrax 6cc Putty 5936926 - Sna - [id number] Implanted:Qty: 1 on 12/22/2023 by Chris aYng MD PhD at [facility] Bone N/A: Spine Lumbar Nuvasive Inc [id number] 12/16/2027 7285788 / NA / [id number] Globus Medical 1134.01 Creo Mis 30mm Modular Polyaxial Tulip Head Screw Bone - Sna - [id number] Implanted:Qty: 4 on 12/22/2023 by Chris Yang MD PhD at [facility] Screw N/A: Spine Lumbar [employer] Medical 1134.0100 / NA / Globus Medical 1134.001 Creo Spinal Cap Locking Nonsterile Mis - Sna - [id number] Implanted:Qty: 4 on 12/22/2023 by Chris Yang MD PhD at [facility] Screw N/A: Spine Lumbar [employer] 1134.0010 / NA / Globus Medical 1134.704 Creo Mis 5.5mm 40mm Curve Ronaldo Spinal Titanium - Sna - [id number] Implanted:Qty: 2 on 12/22/2023 by Chris Yang MD PhD at [facility] Screw N/A: Spine Lumbar [employer]ob[employer] Medical 1134.7040 / NA / Globus Medical Creo 8.5mm 40mm Cannulated Modular Spine Screw Bone 1067.4840 - Sna - [id number] Implanted:Qty: 1 on 12/22/2023 by Chris Yang MD PhD at [facility] Screw N/A: Spine Lumbar [employer] Medical 1067.4840 / NA / Globus Medical Creo 7.5mm 50mm Cannulated Modular Spine Screw Bone 1067.4750 - Sna - [id number] Implanted:Qty: 2 on 12/22/2023 by Chris Yang MD PhD at [facility] Screw N/A: Spine Lumbar [employer] Medical 1067.4750 / NA / Globus Medical Creo Amp 7.5mm 40mm Cannulated Modular Spine Screw Bone 1067.4740 - Sna - [id number] Implanted:Qty: 1 on 12/22/2023 by Chris Yang MD PhD at [facility] Screw N/A: Spine Lumbar [employer]us Medical 1067.4740 / NA / Valve-12/02/2009 Implanted:2009 (Quantity not on file) N/A: Aortic Valve Arthrex Inc Ar-1927bct Corkscrew Suturetape 5.5mm 14.7mm Bioabsorbable Full Thread 1.3mm - S00 - [id number] Implanted:Qty: 1 on 12/01/2018 by Eric Hughes MD at [facility] Orthopedic Pullman Left: Shoulder Arthrex Inc 08/28/2020 AR-1927BCT / 00 / [id number] Arthrex Inc Ar-1927bct Corkscrew Suturetape 5.5mm 14.7mm Bioabsorbable Full Thread 1.3mm - S00 - [id number] Implanted:Qty: 1 on 12/01/2018 by Eric Hughes MD at [facility] Left: Shoulder Arthrex Inc 09/28/2020 AR-1927BCT / 00 / [id number] Arthrex Inc Ar-2324 Bcm Swivelock 4.75mm 24.5mm Self Punch Vent Shoulder Albright Suture - [id number] Implanted:Qty: 1 on 12/01/2018 by Eric Hughes MD at [facility] Left: Shoulder Arthrex Inc 08/28/2020 AR-2324BCM / / [id number] Arthrex Inc Ar-2267 Res Habilitation Assistant Large Eyelet Pectoralis Button Fixation Latex Free - [id number] Implanted:Qty: 1 on 12/01/2018 by Eric Hughes MD at [facility] Orthopedic Pullman Left: Shoulder Arthrex Inc 07/30/2023 AR-2267 / / [id number] Arthrex Inc Ar-2267 Res Habilitation Assistant Large Eyelet Pectoralis Button Fixation Latex Free - [id number] Implanted:Qty: 1 on 02/23/2019 by Eric Hughes MD at [facility] Orthopedic [place] Right: Shoulder Arthrex Inc 11/29/2023 AR-2267 / / [id number] Arthrex Inc Ar-1927bct Corkscrew Suturetape 5.5mm 14.7mm Bioabsorbable Full Thread 1.3mm - [id number] Implanted:Qty: 1 on 02/23/2019 by Eric Hughes MD at [facility] Orthopedic Pull[place] Right: Shoulder Arthrex Inc 12/29/2020 AR-1927BCT / / [id number] Arthrex Inc Ar-1927bct Corkscrew Suturetape 5.5mm 14.7mm Bioabsorbable Full Thread 1.3mm - [id number] Implanted:Qty: 1 on 02/23/2019 by Eric Hughes MD at [facility] Orthopedic Pullman Right: Shoulder Arthrex Inc 12/29/2020 AR-1927BCT / / [id number] Arthrex Inc Ar-2324 Bcm Swivelock 4.75mm 24.5mm Self Punch Vent Shoulder Albright Suture - [id number] Implanted:Qty: 1 on 02/23/2019 by Eric Hughes MD at [facility] Orthopedic Pullman Right: Shoulder Arthrex Inc 09/28/2020 AR-2324BCM / / [id number] Arthrex Inc Ar-2324 Bcm Swivelock 4.75mm 24.5mm Self Punch Vent Shoulder Albright Suture - [id number] Implanted:Qty: 1 on 02/23/2019 by Eric Hughes MD at [facility] Orthopedic [place] Right: Shoulder Arthrex Inc 09/28/2020 AR-2324BCM / / [id number] Cerapedics Inc Allograft Bone Putty 2.5cc 700-025 - [id number] Implanted:Qty: 1 on 09/28/2022 by Chris Yang MD PhD at [facility] N/A: Spine Cervical Cerapedics Inc [id number] 12/29/2024 700-025 / / [id number] Allosource Canpac Nonpurge Frozen Graft 50cc Bone 43482501 - [id number] Implanted:Qty: 1 on 09/28/2022 by Chris Yang MD PhD at [facility] N/A: Spine Cervical Allosource 07/04/2027 [id number] / / [id number] Jeffry Biomet Inc Virage Closure Top Lid Sterilization Nonsterile Disposable Screw 07.56286.001 - [id number] Implanted:Qty: 8 on 09/28/2022 by Chris Yang MD PhD at [facility] N/A: Spine Cervical JEFFRY BIOMET SPINE INC 07.66533.0 01 / / Jeffry Biomet Inc Virage 3.5mm 12mm Polyaxial Spine Screw Bone Nonsterile 07.07748.005 - [id number] Implanted:Qty: 2 on 09/28/2022 by Chris Yang MD PhD at [facility] N/A: Spine Cervical JEFFRY BIOMET SPINE INC 07.37059.0 05 / / Jeffry Biomet Inc Virage 3.5mm 14mm Polyaxial Spine Screw Bone Nonsterile 07.77290.007 - [id number] Implanted:Qty: 6 on 09/28/2022 by Chris Yang MD PhD at [facility] N/A: Spine Cervical JEFFRY BIOMET SPINE INC 07.56976.0 07 / / Jeffry Biomet Inc Virage 3.5mm 50mm Curve Ronaldo Spinal Titanium Nonsterile 07.61064.003 - [id number] Implanted:Qty: 2 on 09/28/2022 by Chris Yang MD PhD at [facility] N/A: Spine Cervical JEFFRY BIOMET SPINE INC 07.98835.0 03 / / Spineology Inc Creede Fusion Optimesh Multiplanar Expand Interbody Sys 315-0025 - [id number] Implanted:Qty: 2 on 03/26/2023 by Chris Yang MD PhD at [facility] N/A: Spine Lumbar Spineology Inc 12/30/2028 315-0025 / / [id number] Medtronic Inc Infuse Kit Xs Graft Bone Rhbmp-2 Bovine Collagen Lumbar Taper 9948107 - [id number] Implanted:Qty: 1 on 03/26/2023 by Chris Yang MD PhD at [facility] N/A: Spine Lumbar Medtronic Inc [id number] 03/01/2024 6689049 / / [id number] Cerapedics Inc Allograft Bone Putty 2.5cc 700-995 - [id number] Implanted:Qty: 1 on 03/26/2023 by Chris Yang MD PhD at [facility] N/A: Spine Lumbar Cerapedics Inc [id number] 04/28/2025 700-025 / / [id number] Spineology Inc Screw Spinal 6.5x40mm Mineral Pedicular Fix Sys Strl 670-6540 - [id number] Implanted:Qty: 1 on 03/26/2023 by Chris Yang MD PhD at [facility] N/A: Spine Lumbar Spineology Inc 10/30/2028 670-6540 / / [id number] Spineology Inc Set Spinal Mineral Pedicular Fix Sys Strl Screw Pkg 670-0007 - [id number] Implanted:Qty: 1 on 03/26/2023 by Chris Yang MD PhD at [facility] N/A: Spine Lumbar Spineology Inc 10/30/2028 670-0007 / / [id number] Spineology Inc Screw Spinal 6.5x45mm Mineral Pedicular Fix Sys Strl 670-6545 - [id number] Implanted:Qty: 1 on 03/26/2023 by Chris Yang MD PhD at [facility] N/A: Spine Lumbar Spineology Inc 10/30/2028 670-6545 / / [id number] Spineology Inc Set Spinal Mineral Pedicular Fix Sys Strl Screw Pkg 670-0007 - [id number] Implanted:Qty: 1 on 03/26/2023 by Chris Yang MD PhD at [facility] N/A: Spine Lumbar Spineology Inc 10/30/2028 670-0007 / / [id number] Spineology Inc Screw Spinal 6.5x45mm Mineral Pedicular Fix Sys Strl 670-6545 - [id number] Implanted:Qty: 1 on 03/26/2023 by Chris Yang MD PhD at [facility] N/A: Spine Lumbar Spineology Inc 10/30/2028 670-6545 / / [id number] Spineology Inc Set Spinal Mineral Pedicular Fix Sys Strl Screw Pkg 670-0007 - [id number] Implanted:Qty: 1 on 03/26/2023 by Chris Yang MD PhD at [facility] N/A: Spine Lumbar Spineology Inc 10/30/2028 670-0007 / / [id number] Spineology Inc Screw Spinal 6.5x40mm Mineral Pedicular Fix Sys Strl 670-4816 - [id number] Implanted:Qty: 1 on 03/26/2023 by Chris Yang MD PhD at [facility] N/A: Spine Lumbar Spineology Inc 08/29/2028 670-6540 / / [id number] Spineology Inc Set Spinal Mineral Pedicular Fix Sys Strl Screw Pkg 670-0007 - [id number] Implanted:Qty: 1 on 03/26/2023 by Chris Yang MD PhD at [facility] N/A: Spine Lumbar Spineology Inc 08/29/2028-0007 / / [id number] Spineology Inc Graft Bone Tube 3/4 Filled Divrtd G2 342546 - [id number] - [id number] Implanted:Qty: 1 on 03/26/2023 by Chris Yang MD PhD at [facility] N/A: Spine Lumbar Spineology Inc 12/01/2024 530497 / [id number] 1136 / Spineology Inc Graft Bone Tube 3/4 Filled Divrtd G2 078680 - [id number] - [id number] Implanted:Qty: 1 on 03/26/2023 by Chris Yang MD PhD at [facility] N/A: Spine Lumbar Spineology Inc 12/01/2024 861376 / [id number] 1136 / Spineology Inc Ronaldo Spinal 40mm Crv Mineral Pedicular Fix Sys Strl 670-7467 - [id number] Implanted:Qty: 1 on 03/26/2023 by Chris Yang MD PhD at [facility] N/A: Spine Lumbar Spineology Inc 10/30/2025 670-4040 / / [id number] Spineology Inc Screw Spinal 7.5x40mm Mineral Pedicular Fix Sys Strl 670-6174 - [id number] Implanted:Qty: 1 on 03/26/2023 by Chris Yang MD PhD at [facility] N/A: Spine Lumbar Spineology Inc 07/30/2028 670-7540 / / [id number] Spineology Inc Set Spinal Mineral Pedicular Fix Sys Strl Screw Pkg 670-000 - [id number] Implanted:Qty: 1 on 03/26/2023 by Chris Yang MD PhD at [facility] N/A: Spine Lumbar Spineology Inc 07/30/2028 670-0007 / / [id number] Spineology Inc Ronaldo Spinal 40mm Crv Mineral Pedicular Fix Sys Strl 670404 - [id number] Implanted:Qty: 1 on 03/26/2023 by Chris Yang MD PhD at [facility] N/A: Spine Lumbar Spineology Inc 09/30/2027 670-4040 / / [id number] Spineology Inc Graft Bone Tube 3/4 Filled Divrtd G2 410753 - [id number] - [id number] Implanted:Qty: 1 on 03/26/2023 by Chris Yang MD PhD at [facility] N/A: Spine Lumbar Spineology Inc 12/01/2024 486583 / [id number] 1136 / Spineology Inc Cage Fusion Optimesh Expand Interbody Sys Spinal Polymeric 300-3032 - [id number] Implanted:Qty: 1 on 03/26/2023 by Chris Yang MD PhD at [facility] N/A: Spine Lumbar Spineology Inc 11/30/2027 300-3032 / / [id number] Spineology Inc Graft Bone Tube 3/4 Filled Divrtd G2 234137 - [id number] - [id number] Implanted:Qty: 1 on 03/26/2023 by Chris Yang MD PhD at [facility] N/A: Spine Lumbar Spineology Inc 12/01/2024 338328 / [id number] 1136 / Procedures Procedure Name Priority Date/Time [...] 3 Months Results * (ABNORMAL) Protime-INR (09/11/2024) [facility] INR 2.50(A) 0.90 - 1.10 EXTERNAL LAB Blood Historical Provider MD LAB BLOOD ORDERABLES Edit ed Result - Final Performing Organization Address [facility] Co de Phone Number EXTERNAL LAB * (ABNORMAL) Protime-INR (08/17/2024 9:28 PM CDT) [facility] INR 2.30(A) 0.90 - 1.10 EXTERNAL LAB Blood Historical Provider MD LAB BLOOD ORDERABLES Edit ed Result - Final Performing Organization Address [facility]/State/ZIP Co de Phone Number EXTERNAL LAB * TRANSTHORACIC ECHO (TTE) COMPLETE W DOPPLER/CF WO CONTRAST (08/17/2024 3:53 PM CDT) Pathologist [facility] Estimated EF 55-60 % CONS SCIMAGE EF Mod BP 51 % CONS SCIMAGE Anatomical Region Laterality Modality Ultrasound 08/17/2024 3:13 PM CDT Narrative 08/17/2024 4:39 PM CDT [facility] [address], [place] [address] [address] [facility] [address], [place] [address] P:[phone] P:[phone] Echocardiographic Report Patient Name: HARPREET JIMENEZ G : 1955 Study Date: 08/17/2024 3:13:20 PM Gender: M Tech: RUPERT Location: [facility] Provider: DAYTON SOTO Height(Cm): 173 BSA: 1.98 [...] FINDINGS: Interpretation Site: Exam was interpreted at [facility]. Left Ventricle: Normal left [...] Procedure Note Ry Qureshi MD - 08/17/2024 [facility] [address] [facility] [address] [id number] [address] [facility] [address], [place] [address] P:[phone] P:[phone] Echocardiographic Report Patient Name: HARPREET JIMENEZ G : 1955 Study Date: 08/17/2024 3:13:20 PM Gender: M Tech: [facility] Location: [facility] Provider: DAYTON SOTO Height(Cm): 173 BSA: 1.98 [...] FINDINGS: Interpretation Site: Exam was interpreted at [facility]. Left Ventricle: Normal left [...] Ry Qureshi MD 08/17/2024 4:38:44 PM CDT us Dayton Soto MD CV ECHO PROCEDURES Final Result * POCT lipid panel (07/18/2024 10:17 AM CDT) Cholesterol, POC 137 <200 MG/DL HDL, POC 53 >=40 mg/dL Triglycerides, POC 99 <=149 mg/dL LDL Cholesterol POC 64 <=129 mg/dL Chol/HDL Ratio, POC 1.2 NONE Non-HDL Cholesterol, POC 84 NONE mg/dL Cholesterol Total, POC 137 30 - 199 mg/dL Capillary blood 07/18/2024 1 0:17 AM CDT us Dayton Soto MD POINT OF CARE TEST [...] R esult from Last 3 Months Insurance [facility] AETNA MEDICARE GOLD AETNA MEDICARE GOLD AETNA MEDICARE GOLD Advance Directives For more information, please contact: [phone] Documents on File Type Date Recorded Patient Sandblasting Supervisor Expl anation ADVANCE DIRECTIVE 09/24/2022 4:11 PM PIPER Esquivel WILL ADVANCE DIRECTIVE 09/24/2022 4:11 PM POWER OF TEXTILE CONSERVATOR-MEDICAL * Full Code (Latest Code Status on File) Date Activated Date Inactivated Comments 12/22/2023 5:27 PM 12/23/2023 6:51 PM * Full Code Date Activated Date Inactivated Comments 03/26/2023 2:46 PM 03/28/2023 3:49 PM * Full Code Date Activated Date Inactivated Comments 09/28/2022 2:53 PM 09/30/2022 4:37 PM Care Teams Asphalt Machine Operator Relationship Specialty Start Date End Date Samir Pearson MD [address] [place] [address] PCP - General 05/29/16 Dayton Soto MD [address] [facility] [address] [place] [address] Consulting Physician Cardiology 12/30/22
--- OUTSIDE RECORDS SUMMARY | 2024-10-04 02:41 | XMS_ITS | Encounter Summary ---
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 documented as of this encounter Procedures Procedure Name Priority Date/Time Associated Diagnosis Comments SCAN - LABS 06/27/2024 documented in this encounter Results * SCAN - LABS (06/27/2024) us Provider Scanning Final Result documented in this encounter Visit Diagnoses Not on filedocumented in this encounter Care Teams Extractions Technician Relationship Specialty Start Date End Date Samir Pearosn MD [address] [place] [address] PCP - General 05/29/16 Marek Soto MD [address] [facility] [address] [place] [address] Consulting Physician Cardiology 12/30/22 documented as of this encounter
[2024-10-04 08:50] VITALS: BP 135/73; PULSE 58; RESP 16; TEMP 36.8; O2SAT 98
--- NOTE | 2024-10-04 09:30 | ECHO_ITS ---
Patient Info Name: Guillaume Hutchinson Age: 69 years : 1955 Gender: Male Ht: 68 in Wt: 176 lbs BSA: 1.97 m2 HR: 65 bpm BP: 127 / 79 mmHg Heart Rhythm: Sinus Rhythm Technical Quality: Good Exam Date: 10/04/2024 9:24 AM Patient Status: O Admit Date: 10/04/2024 Exam Type: CA echo transesophageal Complete two-dimensional, color flow and Doppler transesophageal study is performed. Automobile Rental Representative: Ashia Nielsen Attending Provider: Marek Soto MD Summary 1. Esophageal ECHO performed to evaluate mechanical aortic prosthesis. 2. Prosthetic mechanical valve is unremarkable in appearance with normal disc excursion, no evidence of stenosis and trivial regurgitation. 3. Normal left ventricular size and systolic function. Left Ventricle Left ventricular chamber dimension is normal. Right Ventricle Right ventricular chamber dimension is normal. Left Atria Left atrial chamber dimension is mildly enlarged. Right Atria Right atrial chamber dimension is normal. Aortic Valve There is trace regurgitation of the mechanical aortic valve. Pulmonic Valve The pulmonic valve is not well visualized. Mitral Valve The mitral valve has normal leaflets. There is trace mitral valve regurgitation. Tricuspid Valve The tricuspid valve leaflets are normal. Pericardium/Pleural The pericardium appears normal. Aorta The aortic root size at the sinus of Valsalva is normal. Report Signatures
--- NOTE | 2024-10-04 09:44 | P.PCNCC_ITS ---
Cardiac Cath Procedure Note Date of procedure:: 10/04/24 Performing physician:: Marek Soto MD Indication:: Evaluate mechanical aortic valve prosthesis Brief clinical history:: This is a 69-year-old man with a history of aortic regurgitation who underwent mechanical AVR in the remote past. He has been experiencing some shortness of breath recently and transthoracic study has suggested the presence of stenosis and regurgitation of his prosthetic valve. For further evaluation of this ramakrishna has been recommended. Procedure Procedure performed:: Transesophageal echocardiogram Sedation/Medication given:: Sedation per Anesthesia Service Estimated blood loss:: No blood loss Procedure note:: Patient was brought to the cardiac tag and label cutter holding area/postanesthesia unit where he was in the postabsorptive state placed in the supine position. The oropharynx was sprayed using benzocaine. The bite block was then placed and he was then sedated per the Anesthesia Service using propofol. Following this the transesophageal echo probe was placed easily into the high pliable pharynx and advanced into the esophagus where multiplane RAMAKRISHNA with Doppler was performed. Following completion of the study the RAMAKRISHNA probe was withdrawn and the patient was recovered from sedation. The procedure was well tolerated and uncomplicated. Findings:: The left atrium is unremarkable in appearance the atrium in the appendage are free of thrombus. The mitral valve leaflets are thin and pliable there is trivial mitral regurgitation. The left ventricle is of normal and contracts well in all segments. The prosthetic aortic valve was a mechanical device with unremarkable appearance there is very good excursion of the mechanical discs and no restriction in excursion. There is no evidence of pannus in the LV outflow tract. There is a trivial jet of prosthetic aortic regurgitation. The ascending aorta is a synthetic graft which is unremarkable in appearance the descending thoracic aorta and aortic arch appear unremarkable. The right-sided chambers are normal in size and appearance the tricuspid valve looks normal there is no pericardial effusion Conclusion:: Transesophageal echo exam of the mechanical aortic valve prosthesis appears unremarkable there is extra leaflet excursion, no evidence of functional stenosis and trivial regurgitation Marek Soto MD [facility]
[2024-10-04 10:00] VITALS: BP 114/72; PULSE 63; RESP 18; O2SAT 96
[2024-10-04 10:15] VITALS: BP 125/70; PULSE 65; RESP 14; O2SAT 98
[2024-10-04 10:30] VITALS: BP 125/71; PULSE 57; RESP 16; O2SAT 98
[2024-10-04 10:45] VITALS: BP 117/66; PULSE 53; RESP 13; O2SAT 98
--- NOTE | 2024-10-26 14:35 | WPDANESEPPF ---
Anes - Initial Pre Proc Eval Procedure: Operation Date: 10/04/24 09:30 Proposed Procedures p Trans Esophageal Echo - Marek Soto MD Date/Time: 10/26/24 14:35 Surgeon: Marek Soto MD Pre Op Diagnosis: AF Patient Data Age: 69 Gender: M Height: 1.73 m Weight: 80 kg Last Vital Signs Temp 36.8 C 10/04/24 08:50 Pulse 53 L 10/04/24 10:45 Resp 13 10/04/24 10:45 BP 117/66 10/04/24 10:45 Pulse Ox 98 10/04/24 10:45 O2 Del Method Room Air 10/04/24 10:45 Allergies Allergy/AdvReac Type Severity Reaction Status Date / Time No Known Allergies Allergy Verified 10/03/24 10:28 Home Medications ?Medication ?Instructions ?Recorded ?Confirmed ?Type aspirin 81 mg tablet 81 mg PO DAILY 04/23/21 10/03/24 History cetirizine 10 mg capsule (Zyrtec) 10 mg PO DAILY 04/23/21 10/03/24 History latanoprost 0.005 % eye drops 1 drp EACH EYE HS 04/23/21 10/03/24 History warfarin 2 mg tablet (Jantoven) 2 mg PO DAILY 05/30/22 10/03/24 History losartan 100 mg tablet 100 mg PO DAILY #90 tabs 09/25/24 10/03/24 Rx rosuvastatin 20 mg tablet 20 mg PO QPM #90 tabs 09/25/24 10/03/24 Rx sertraline 100 mg tablet See Rx Instructions .Route 10/20/24 Rx .COMPLEX #135 tabs Patient hx anesthesia problems: none Family hx anesthesia problems: none Results Review: All pre-operative results and documents have been reviewed as part of the pre-operative evaluation. [facility] Past Medical History Medical History termite control servicer current use of anticoagulant Lumbosacral spondylosis with radiculopathy Aortic insufficiency Pure hypercholesterolemia, unspecified Major depressive disorder, recurrent, in full remission Essential (primary) hypertension Anxiety Glaucoma Surgical History Surgical History History of lumbar discectomy March 26, 2023 History of repair of rotator cuff Right side with biceps repair 01/2019 History of repair of rotator cuff Left side with biceps repair 11/2018 History of cervical discectomy C5-C6 with fusion. 1990 H/O cleft lip repair 1957, 195. 1968. 1969. 1970 H/O aortic valve replacement 2009 Social History Social History Smoking status: Never smoker Second hand tobacco smoke exposure: No Alcohol intake: never Substance use: never Substance use type: does not use Lack of Transportation: No Lack of Food: Never True Current Housing: I Have Housing Concerned About Future Housing: No Difficulty Paying for Meds: No Currently Unemployed: YES Education: High School Diploma/GED Difficulty w/ Childcare or Family Care: No Living arrangements: with family Occupation/Education: retired Gender identity (if verbalized by the patient): Male Sexual Orientation (if Verbalized by the Patient): Straight or Heterosexual Spiritual care concerns: No Anes - Eval Final PreProcedure Day of Procedure 10/26/24 14:35 Patient weight: overweight Heart: regular rate and rhythm Lungs: clear to auscultation and normal air movement Airway: Mallampati scale class II Neurological: alert and oriented Last oral intake: >/= 8 hours ASA classification: III Emergent: no Anesthetic plan: proceed Anesthesia type and monitoring: general GIVS and standard monitoring Results Review: All pre-operative results and documents have been reviewed as part of the pre-operative evaluation. Informed Consent: The patient's anesthetic plan and its attendant risks and benefits were discussed with the patient/family/POA. Questions were solicited and answers provided to the satisfaction of the patient/family/POA.
== END 2024-10-04 11:00 | disposition home or self-care (01) ==
PROVIDERS: PCP Family Medicine; Visit Provider Specialist
PROC: (CPT 93312; principal; 2024-10-04 09:30)
DX: R93.1 Abnormal findings on diagnostic imaging of heart and coronary circulation (principal); I08.0 Rheumatic disorders of both mitral and aortic valves; Z79.82 Long term (current) use of aspirin; Z79.01 Long term (current) use of anticoagulants; Z95.2 Presence of prosthetic heart valve
CPT/HCPCS: 93312; 93320; 93325; J7040

== ENCOUNTER 2024-12-27 07:47 | Outpatient (RCR) | payer MEDICARE, SELFPAY ==
[2024-10-19 09:32] LABS: INR 2.5; Prothrombin Time 26.3 Seconds (11.1-14.7)
[2024-12-27 10:04] LABS: INR 1.8; Prothrombin Time 20.0 Seconds (11.1-14.7)
== END 2025-01-17 23:59 | disposition home or self-care (01) ==
LOC: ANHLAB 07:47
PROVIDERS: PCP Family Medicine; Visit Provider Specialist
DX: Z51.81 Encounter for therapeutic drug level monitoring (principal); Z95.2 Presence of prosthetic heart valve; Z79.01 Long term (current) use of anticoagulants
CPT/HCPCS: 36415; 85610